=== PATIENT | female | born 1940 | race Caucasian/White ===

== ENCOUNTER 2017-12-23 08:32 | Outpatient (CLI) | payer MEDICARE, BC, SELFPAY ==
--- NOTE | 2017-12-23 06:00 | DI.RAD_ITS ---
SYMPTOM/DIAGNOSIS: CERVICAL MEDIAL BRANCH BLOCK C-ARM FLUOROSCOPY OF CERVICAL SPINE: Fluoroscopy Time: 45 Fluoroscopy was provided for guidance with cervical spine pain clinic injections. Please see procedure note for details.
[2017-12-23 08:42] VITALS: BP 119/75; PULSE 64; RESP 16; TEMP 36.2; O2SAT 100
[2017-12-23] MEDS: Omnipaque 240 MG/ML 50 ML BTL IJ (10:03)
[2017-12-23] MEDS: Bupivacaine 0.5% Pres-Free 30 ML VIAL IJ (10:04)
[2017-12-23 10:05] VITALS: BP 139/71; PULSE 68; RESP 18; O2SAT 100
--- NOTE | 2018-01-05 15:07 | PDOC.PAIN_ITS ---
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 COMMENTS: Patient has had right-sided neck pain approximately 1 year. She has tried physical therapy.which helped some. Patient was interviewed and the medical record reviewed. There were no medical , pharmacologic, radiographic or other structural contraindications to attempting fluoroscopically guided local anesthetic cervical medial branch blocks. Risks and expected side effects as well as potential benefit of the procedure were reviewed and voiced concerns addressed. The printed consent form was signed and witnessed. Standard time-out procedure was performed. Patient was placed in the { Left} lateral decubitus position on the fluoroscopy table and automated blood pressure cuff and pulse oximeter applied. The skin entry points for approaching the anatomic target points of the segmental medial branches of {Right/ C2/3,3,4,5} were identified with fluoroscopy and marked. Following thorough Chlorhexadine preparation of the skin and draping and 1% lidocaine infiltration of the skin entry points and subcutaneous tissues, a 25 gauge spinal needle was placed under fluoroscopic guidance down on to the target point for each respective segmental medial branch. Position was confirmed in A/ P and leteral views with 0.25ml of omnipaque 240 injected at each level. At each point 0.3ml 0.5% bupivicaine was injected. Vital signs were stable throughout the procedure and were as recorded in the docflowsheet by the nursing staff. Follow up plans and appointments were discussed and patient was instructed to keep careful note of how the usual pain was modified by these injections. Specifically, the patient was asked to keep a pain diary for the next 24 hours using a numeric pain scale of 0-10 and report these results at the follow-up visit. Post procedure instruction was given as documented in the nursing documentation and having met discharge criteria, and was discharged from the [facility]. Based on the medial branches blocked today, if they patient has adequate relief and we are able to proceed to radiofrequency ablation, the treatment should result in the denervation of the {right/ C2-3,3-4,4-5 FACET JOINTS}. We would expect to denervate a total of {3} facets during the radiofrequency ablation. COMMENTS: Pain went from 6/10 to 4/10. Continues quite. She will return for a second block with lidocaine. If not I would consider a Alanto-axial injection on the right side. After reviewing her CT scan it appears that she portion of her pain and mobility. CC: Ermias Sutton
== END 2017-12-23 08:52 ==
PROVIDERS: PCP Emergency Medicine; Visit Provider Anesthesiology Pain Medicine
DX: M47.812 Spondylosis without myelopathy or radiculopathy, cervical region (principal); G89.29 Other chronic pain
CPT/HCPCS: 64490; 64491; 64492; 72040; Q9967

== ENCOUNTER 2018-01-21 15:12 | Emergency (ER) | payer MEDICARE, BC, SELFPAY ==
[2018-01-21] VITALS (37 sets, daily range): BP systolic 99–159; BP diastolic 69–114; PULSE 56–80; RESP 13–28; TEMP 36.7; O2SAT 89–97
[2018-01-21 16:38] LABS: Abs Immature Grans 0.03 k/cumm (0.0-0.09); Absolute Basophil Count 0.04 k/cumm (0.0-0.2); Absolute Monocyte Count 0.53 k/cumm (0.11-0.7); Absolute Neutrophil Count 3.64 k/cumm (1.2-6.7); Basophils % 0.7; Eosinophils % 1.7; HGB 13.2 g/dL (12.0-15.5); Immature Grans % 0.5; Lymphocytes % 28.1; Mean Corpuscular Hemoglobin 30.6 pg (27.0-33.0); Mean Corpuscular Volume 92.6 fL (80-95); Mean Platelet Volume 10.3 fL (8.0-11.0); Monocytes % 8.8; Neutrophils % 60.2; Platelet Count 296 x1000/uL (130-400); RBC 4.32 m/cumm (4.00-5.20); RBC Distribution Width 14.3 % (11.7-14.6); White Blood Cell Count 6.04 k/cumm (4.4-10.8)
[2018-01-21 16:53] LABS: ALT 62 U/L (12-78); AST 50 U/L (15-37); Albumin 3.2 g/dL (3.4-5.0); Alkaline Phosphatase 358 U/L (46-116); Anion Gap 8.5 mmol/L (3-11); BUN 27 mg/dL (7-18); Bilirubin, Total 0.4 mg/dL (0.2-1.0); CO2 27.5 mmol/L (21.0-32.0); CREATININE 1.12 mg/dL (0.55-1.02); Calcium 8.8 mg/dL (8.5-10.1); Chloride 103 mmol/L (98-107); Estimated GFR 47.17 (mL/min/1.73m2); Glucose 99 mg/dL (70-100); Magnesium 2.1 mg/dL (1.8-2.4); Potassium 3.7 mmol/L (3.5-5.1); Sodium 139 mmol/L (136-145); Troponin I < 0.02 ng/mL (0.00-0.06)
[2018-01-21 17:11] LABS: D-Dimer 839 ng/mlFEU (<500)
--- NOTE | 2018-01-21 18:36 | DI.CT_ITS ---
SYMPTOMS/DIAGNOSIS: SHORTNESS OF BREATH, ? PE CHEST CT FOR PULMONARY EMBOLISM: CT angiography was performed with multi slice acquisition and multi planar and 3D reconstruction. There is no evidence of pulmonary emboli or aortic dissection. A 6 mm nodule is seen at the anterior left lower lobe. No other pulmonary nodules are seen. There is linear scarring versus atelectasis at the lung bases. There is mild pleural scarring and mild interstitial thickening. There is no evidence of adenopathy, infiltrate or effusion. There is a mild T9 compression fracture of the superior endplate. This was not seen on the previous chest x-ray from 2010. There is calcification posterior to the T0 and T11 vertebral bodies, which appears unchanged, consistent with ligamentous calcifications. The visualized portions of the upper abdomen are unremarkable. IMPRESSION: No evidence of pulmonary emboli or other acute abnormality. There is a mild T9 compression fracture, which appears old. Follow up of the left lower lobe nodule is recommended according to Fleishner Society guidelines.
[2018-01-21] MEDS: Omnipaque 350 MG/ML 100 ML BTL IJ (18:43)
--- NOTE | 2018-01-21 18:55 | DI.VRAD_ITS ---
EXAM: CT Angiography Chest With Intravenous Contrast CLINICAL HISTORY: 77 years old, female; Signs and symptoms; Shortness of breath; Patient HX: A/fib TECHNIQUE: Axial computed tomographic angiography images of the chest with intravenous contrast using pulmonary embolism protocol. MIP reconstructed images were created and reviewed. Coronal and sagittal reformatted images were created and reviewed. COMPARISON: No relevant prior studies available. FINDINGS: No evidence of PE. Mild diffuse interstitial lung scarring. No significant focal consolidation. Suggestion of a 6 mm nodule in the lingula. Please see the final report for details as to the local protocol for followup. The Fleischner criteria are included below. No pleural effusion. No pneumothorax. No significant adenopathy. Unremarkable upper abdomen. No acute mediastinal or aortic abnormality. Minimal old appearing compression of the T9 vertebral body. Prominent posterior calcification or ossification at the T10-11 level resulting in mild narrowing of the central canal. Significance of this is uncertain. IMPRESSION: No specific etiology identified for the patient's symptoms. Suggestion of a 6 mm nodule in the lingula as outlined above. As per Fleischner Society guidelines for follow-up and management of pulmonary nodules: For patients at low risk (minimal or absent history of smoking and of other known risk factors), recommend initial follow-up chest CT at 6-12 months then at 18-24 months if no change. For patient at high risk (history of smoking or of other known risk factors), recommend initial follow-up chest CT at 3-6 months, then at 9-12 and 24 months if no change. Dictated and Authenticated by: Josep Epstein MD. Ordering:LIV SORENSEN MD
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
[2018-01-21] MEDS: Apixaban 5 MG TAB PO (20:48)
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
== END 2018-01-21 20:49 | disposition home or self-care (01) ==
PROVIDERS: Emergency Provider Student in an Organized Health Care Education/Training Program; PCP Emergency Medicine
DX: R06.02 Shortness of breath (principal); I48.91 Unspecified atrial fibrillation; R91.1 Solitary pulmonary nodule; Z79.01 Long term (current) use of anticoagulants
CPT/HCPCS: 36415; 71275; 80053; 93005; 99285; 83735; 84484; 85025; 85379; 93010; J3490

== ENCOUNTER 2018-01-26 01:58 | Outpatient (CLI) | payer MEDICARE, BC, SELFPAY ==
--- NOTE | 2018-02-11 10:09 | ZIOP_ITS ---
ZIO Patch Report DATE OF DICTATION February 11, 2018 STUDY INDICATION Atrial fibrillation. REQUESTING PROVIDER Ermias Sutton D.O. FINDINGS The patient was monitored for 11 days and 1 hour. COMMENTS The predominant underlying rhythm was sinus rhythm. Average heart rate in sinus rhythm 69 beats per minute, range 50 to 125 beats per minute. There was rare ectopy. The patient was in atrial fibrillation 3% of the time. Average heart rate in atrial fibrillation 76 beats per minute, range 53 to 147 beats per minute. The longest episode lasted 7 hours and 15 minutes. There were 11 atrial runs most likely resembling atrial fibrillation, average heart rate 113 beats per minute, range 85 to 144 beats per minute. The longest episode lasted 8 beats. There were no pauses greater than 3 seconds. There was no higher degree heart block. There were no patient events. FINAL INTERPRETATION Paroxysmal atrial fibrillation with controlled ventricular response. Freddy Gordon M.D. CHELA/elizabet T - 02/11/2018
--- NOTE | 2018-02-16 11:44 | ZIOP_ITS ---
ZIO PATCH REPORT DATE OF DICTATION February 16, [address] 11 days 1 hour, January 26 - 2017 INTERPRETATION Baseline rhythm sinus. Rare single PAC. 11 bursts of SVT, longest 8 beat duration, fastest 144 beats per minute. Atrial fibrillation noted on 3% of this monitor, longest episode 7 hours 15 minutes. Average heart ra te in atrial fibrillation 76 beats per minute, range 53-147 beats per minute. Rare single PVC. Rare couplet. Rare triplet. No VT. No bradycardia/block. SYMPTOMS No symptoms. No triggered events. Average heart rate sinus 69 beats per minute, range 50-125 beats per minute. Mike Lewis M.D. MYCHAL/elizabet T - 02/16/2018
== END 2018-01-26 02:18 ==
PROVIDERS: PCP Emergency Medicine; Visit Provider Emergency Medicine
DX: I48.0 Paroxysmal atrial fibrillation (principal)
CPT/HCPCS: 93225

== ENCOUNTER 2018-01-28 00:09 | Outpatient (CLI) | payer MEDICARE, BC, SELFPAY | END 2018-01-28 00:29 | PROVIDERS: PCP Emergency Medicine; Visit Provider Emergency Medicine | DX: I48.0 Paroxysmal atrial fibrillation (principal) ==

== ENCOUNTER 2018-02-06 00:30 | Outpatient (CLI) | payer MEDICARE, BC, SELFPAY ==
--- NOTE | 2018-02-06 14:00 | MERGE_ITS ---
*[facility]* *[facility]* [address] [place] [address] Date of study: 02/06/2018 Transthoracic Echocardiography M-mode, complete 2D, complete spectral Doppler, and color Doppler *STUDY CONCLUSIONS* Summary: 1. Left ventricle: The cavity size was normal. Wall thickness was normal. Systolic function was normal. The estimated ejection fraction was 55-60%. Wall motion was normal; there were no regional wall motion abnormalities. 2. Right ventricle: The cavity size was normal. Systolic function was normal. 3. Mitral valve: There was mild regurgitation. 4. Tricuspid valve: There was moderate-severe regurgitation. 5. Inferior vena cava: The vessel was normal in size. The respirophasic diameter changes were in the normal range (greater than or equal to 50%), consistent with normal central venous pressure. *PATIENT PRESENTATION* Height: 170.2cm ((67in) ) S/D Pressure: 131 / 82 Weight: 62.6kg ((137.7lb) ) BSA: 1.72m^2 Test start time: 02:00 PM. Test stop time: 03:00 PM. ORDERING Ermias Sutton REFERRING Ermias Sutton PERFORMING Unknown PERFORMING [facility] MEDICAL UNIT SECRETARY Phoebe Olivas *PROCEDURE DATA* Procedure information: This study was interpreted by [facility]. Pertinent images and digital data are archived for permanent storage and are available for subsequent review. No prior study was available for comparison. Study status: Routine. Transthoracic echocardiography. M-mode, complete 2D, complete spectral Doppler, and color Doppler. A Transthoracic Echocardiogram was performed. Scanning was performed from the parasternal, apical, subcostal, and suprasternal notch acoustic windows. Images were obtained using an [employer] 2000 cardiac ultrasound machine. Image quality was adequate. Study completion: The patient tolerated the procedure well. There were no complications. History: PMH: Atrial fibrillation *CARDIAC ANATOMY* Left ventricle: The cavity size was normal. Wall thickness was normal. Systolic function was normal. The estimated ejection fraction was 55-60%. Wall motion was normal; there were no regional wall motion abnormalities. Findings consistent with diastolic dysfunction. There was no evidence of elevated ventricular filling pressure by Doppler parameters. Aortic valve: Trileaflet; normal thickness leaflets. Mobility was not restricted. Doppler: Transvalvular velocity was within the normal range. There was no stenosis. There was no significant regurgitation. VTI ratio of LVOT to aortic valve: 0.85. Valve area (VTI): 2.5cm^2. Indexed valve area (VTI): 1.4cm^2/m^2. Peak velocity ratio of LVOT to aortic valve: 0.79. Valve area (Vmax): 2.3cm^2. Indexed valve area (Vmax): 1.3cm^2/m^2. Mean velocity ratio of LVOT to aortic valve: 0.78. Valve area (Vmean): 2.3cm^2. Indexed valve area (Vmean): 1.3cm^2/m^2. Mean gradient (S): 3.2mm Hg. Peak gradient (S): 6.3mm Hg. Aorta: Aortic root: The aortic root was normal in size. Ascending aorta: The ascending aorta was normal in size. Mitral valve: Structurally normal valve. Mobility was not restricted. Doppler: Transvalvular velocity was within the normal range. There was no evidence for stenosis. There was mild regurgitation. Valve area by pressure half-time: 2.8cm^2. Indexed valve area by pressure half-time: 1.6cm^2/m^2. Left atrium: The atrium was normal in size. Right ventricle: The cavity size was normal. Systolic function was normal. Pulmonic valve: Poorly visualized. Doppler: Transvalvular velocity was within the normal range. There was no evidence for stenosis. There was no significant regurgitation. Tricuspid valve: Structurally normal valve. Doppler: Transvalvular velocity was within the normal range. There was no evidence for stenosis. There was moderate-severe regurgitation. Pulmonary artery: Poorly visualized. Pulmonary systolic pressure was within the normal range, in the range of 20mm Hg to 25mm Hg. Right atrium: The atrium was dilated. Pericardium: There was no pericardial effusion. Systemic veins: Inferior vena cava: The vessel was normal in size. The respirophasic diameter changes were in the normal range (greater than or equal to 50%), consistent with normal central venous pressure. Measurements Left ventricle Value Reference LV ID, ED, PLAX 4.3 cm 3.5 - 6.0 LV ID, ES, PLAX 2.6 cm 2.1 - 4.0 LV PW thickness, ED, PLAX 0.9 cm LV end-diastolic volume, 1-p A2C 68 ml LV ejection fraction, 1-p A2C 73 % LV end-diastolic volume, 1-p A4C 56 ml LV ejection fraction, 1-p A4C 58 % LV e', lateral 0.084 m/sec LV E/e', lateral 5 Ventricular septum Value Reference IVS thickness, ED, PLAX 0.9 cm LVOT Value Reference LVOT ID, A-P 1.9 cm LVOT area 2.9 cm^2 LVOT peak velocity, S 1 m/sec LVOT mean velocity, S 0.65 m/sec LVOT VTI, S 21.2 cm LVOT peak gradient, S 4 mm Hg LVOT mean gradient, S 2 mm Hg Stroke volume (SV), LVOT DP 62 ml Stroke index (SV/bsa), LVOT DP 36 ml/m^2 Aortic valve Value Reference Aortic valve peak velocity, S 1.3 m/sec Aortic valve mean velocity, S 0.83 m/sec Aortic valve VTI, S 25.0 cm Aortic mean gradient, S 3.2 mm Hg Aortic peak gradient, S 6.3 mm Hg VTI ratio, LVOT/AV 0.85 Aortic valve area, VTI 2.5 cm^2 Velocity ratio, peak, LVOT/AV 0.79 Aortic valve area, peak velocity 2.3 cm^2 Velocity ratio, mean, LVOT/AV 0.78 Aortic valve area, mean velocity 2.3 cm^2 Aortic valve area/bsa, mean velocity 1.3 cm^2/m^2 Aorta Value Reference Aortic root ID, ED 2.8 cm Ascending aorta ID, A-P, S 3.1 cm Left atrium Value Reference LA ID, A-P, ES 3.4 cm LA ID/bsa, A-P 2.0 cm/m^2 <=2.2 LA area, ES, A4C 19 cm^2 8.8 - 23.4 LA area, ES, A2C 15 cm^2 LA volume/bsa, S 29 ml/m^2 LA volume, ES, 2-p 46 ml LA volume/bsa, ES, 2-p 27 ml/m^2 LA/aortic root ratio 1.2 Mitral valve Value Reference Mitral E-wave peak velocity 0.42 m/sec Mitral A-wave peak velocity 0.68 m/sec Mitral deceleration time (H) 269 ms 150 - 230 Mitral pressure half-time 78 ms Mitral E/A ratio, peak 0.61 Mitral valve area, PHT, DP 2.8 cm^2 Tricuspid valve Value Reference Tricuspid regurg peak velocity 2.3 m/sec Tricuspid peak RV-RA gradient 20.9 mm Hg Right atrium Value Reference RA area, ES, A4C (H) 21.7 cm^2 8.3 - 19.5 Legend: (L) and (H) belgica values outside specified reference range. I have personally reviewed the images and have reviewed and edited the reported findings. Electronically signed by Aoms Rosa 02/07/2018 09:56
== END 2018-02-06 00:50 ==
PROVIDERS: PCP Emergency Medicine; Visit Provider Emergency Medicine
DX: I48.91 Unspecified atrial fibrillation (principal); R06.09 Other forms of dyspnea; I34.0 Nonrheumatic mitral (valve) insufficiency
CPT/HCPCS: 93306

== ENCOUNTER 2018-02-11 | Outpatient (CLI) | payer MEDICARE, BC, SELFPAY ==
--- NOTE | 2018-02-11 08:15 | MERGEMPI_ITS ---
*[facility]* *[facility]* [address] [place] [address] Myocardial Perfusion Imaging - SPECT Mg protocol Date of study: 02/11/2018 *PATIENT PRESENTATION* Height: 172.7cm (68in) Blood Pressure: Weight: 62.3kg (137lb) BSA: 1.73m^2 Referring physician: Freddy Gordon Ordering physician: Ermias Sutton Impressions: Normal study after maximal exercise. Summary: 1. Myocardial perfusion imaging: No myocardial perfusion defects noted. 2. The calculated left ventricular ejection fraction after stress: 67%. LV global systolic function is normal. 3. Stress ECG conclusions: The stress ECG is negative. 4. Stress: The target heart rate was achieved. The heart rate response to stress is normal. There is a normal resting blood pressure with an appropriate response to stress. The patient experienced no chest pain during stress. Exercise capacity is good (10 METS). Indication: I48.91. History: Patient's presenting symptoms: asymptomatic. REASON FOR VISIT: PATIENT PRESENTED TO THE EMERGENCY ROOM ON 01/21/18, AFTER BEING SEEN BY PCP, FOR COMPLAINTS OF MILD DYSPNEA ON EXERTION AND FATIGUE OCCURING OVER THE PAST MONTH. PATIENT DENIES SHORTNESS OF BREATH AT REST. EKG REVEALED NEW ONSET ATRIAL FIBRILLATION, RATE 69 BPM, ANTERIOR SEPTAL Q WAVES, AND NO ACUTE ISCHEMIC CHANGES. PLAN TO FURTHER EVALUATE WITH HOLTER MONITOR AND MPI STRESS TEST. 02/06/18 ECHOCARDIOGRAM: ESTIMATED EJECTION FRACTION WAS 55-60%. MILD REGURGITATION OF MITRAL VALVE. MODERATE-SEVERE REGURGITATION OF TRICUSPID VALVE. PAST MEDICAL HISTORY: HYPERTENSION, HYPERLIPIDEMIA, OSTEOPOROSIS, ARTHRITIS,RECURRENT BASAL CELL CARCINOMA. FAMILY HISTORY: NONE. SMOKING STATUS: NEVER SMOKER. EXERCISE ROUTINE: PT WITH AALIYAH SWAN 2X/WEEK. HAD PREVIOUSLY BEEN EXERCISING ON TREADMILL OR STATIONARY BIKE EVERY DAY, HAS NOT BEEN ABLE TO THIS PAST MONTH DUE TO FATIGUE. Risk factors: Hypertension. Dyslipidemia. Cholesterol: 230mg/dl. HDL: 67mg/dl. LDL: 127mg/dl. Triglycerides: 116mg/dl. ALLERGIES: LISINOPRIL, HYDROCHLOROTHIAZIDE. MEDICATIONS: MULTIVITAMIN, DAILY. VITAMIN B12 - FOLIC ACID, DAILY. CALCIUM CARBONATE 600MG, DAILY. VITAMIN D3 1,000 UNITS, DAILY. APIXABAN 5MG, BID. AMLODIPINE 50MG, DAILY. Imaging Technique: Protocol: Mg protocol. Acquisition: Gated SPECT; 1 day - rest/stress. The patient was imaged in the supine position. Attenuation correction used. Isotope administration: - Rest. Tc[99m]-sestamibi. Dose: 10.1mCi. Injection time: 08:30 AM. Injection to stress time: 00:45. - Stress. Tc[99m]-sestamibi. Dose: 30mCi. Injection time: 10:20 AM. 1-2 min before end of exercise Baseline ECG: SINUS BRADYCARDIA, HEART RATE 53 BPM. Q WAVES PRESENT IN LEADS V1 AND V2. Sinus bradycardia. Stress protocol: + +---+ +---+ !Stage !HR !BP (mmHg) !Sat! + +---+ +---+ !Baseline supine !53 !128/62 (84) !99%! + +---+ +---+ !Baseline standing !70 !142/82 (102) !---! + +---+ +---+ !Stage I; 1.7mph, 10degrees; 3 min !102!152/94 (113) !---! + +---+ +---+ !Stage II; 2.5mph, 12degrees; 3 min !117!162/94 (117) !---! + +---+ +---+ !Stage III; 3.4mph, 14degrees; 3 min!133!178/102 (127)!---! + +---+ +---+ !Peak stress !135! !---! + +---+ +---+ !Recovery; 1 min !113!178/86 (117) !---! + +---+ +---+ !Recovery; 3 min !79 !154/80 (105) !---! + +---+ +---+ !Recovery; 6 min !72 !142/70 (94) !---! + +---+ +---+ * Stress results: Maximal heart rate during stress was 135bpm (94% of maximal predicted heart rate). The maximal predicted heart rate was 143bpm. The target heart rate was achieved. The heart rate response to stress is normal. There is a normal resting blood pressure with an appropriate response to stress. The rate-pressure product for the peak heart rate and blood pressure was 72373hw Hg/min. The patient experienced no chest pain during stress. Exercise capacity is good (10 METS). Stress ECG: TREADMILL PORTION OF MPI STRESS TEST ENDED IN 8MIN 59SEC DUE TO PATIENT FATIGUE. APPROPRIATE HEART RATE AND BLOOD PRESSURE RESPONSE TO EXERCISE. MAX HEART RATE 135BPM, 94% OF TARGET. APPROXIMATE METS ACHIEVED 10.16. NO ANGINA REPORTED. OCCASIONAL PVC NOTED IN STAGE 2 AND 3 OF MG PROTOCOL. FREQUENT PAC'S NOTED IN STAGE 2 OF MG PROTOCOL AND CONTINUING UNTIL 4MIN RECOVERY. NO SIGINIFICANT ST SEGMENT CHANGES NOTED. ABOVE AVERAGE FUNCTIONAL CAPACITY. The stress ECG is negative. Sargent treadmill score: 9. This score predicts a low risk of cardiac events. Myocardial perfusion: Imaging information: gated. The image quality was excellent. Left ventricular size is normal. No myocardial perfusion defects noted. Ventricular Function (Wall Motion): The calculated left ventricular ejection fraction after stress: 67%. LV global systolic function is normal. Study data: Freddy Gordon MD supervised and was readily available during the procedure. This study was interpreted by [facility]. Study status: Routine. Consent: The risks, benefits, and alternatives to the procedure were explained to the patient and informed consent was obtained. Procedure: Initial setup. A baseline ECG was recorded. Surface ECG leads and manual cuff blood pressure measurements were monitored. Heart sounds: Normal. Lung sounds: Normal. Treadmill exercise testing was performed using the Mg protocol. Study completion: All catheters inserted during the procedure were removed. The patient tolerated the procedure well and was discharged from the lab. Discharge: The patient left the laboratory in stable condition. Birthdate: Patient birthdate: 1940. Sex: Gender: female. Study date: Study date: 02/11/2018. Study time: 08:15 AM. Signature Documentation: - The imaging portion of this study was interpreted by Nuclear Cleaning Attendant Freddy Gordon MD. - The imaging portion of this study was interpreted by Nuclear Radiologist Bowen Pugh MD. - The Stress ECG portion of this study was interpreted by Freddy Gordon MD. Electronically signed by Freddy Gordon 02/11/2018 15:33
== END 2018-02-11 00:20 ==
PROVIDERS: PCP Emergency Medicine; Visit Provider Emergency Medicine
DX: I48.91 Unspecified atrial fibrillation (principal); I10 Essential (primary) hypertension; E78.5 Hyperlipidemia, unspecified
CPT/HCPCS: 78452; 93016; 93018; 93017

== ENCOUNTER 2018-02-11 08:11 | Outpatient (CLI) | payer MEDICARE, BC, SELFPAY | END 2018-02-11 08:31 | PROVIDERS: PCP Emergency Medicine; Visit Provider Student in an Organized Health Care Education/Training Program | DX: I48.91 Unspecified atrial fibrillation (principal) | CPT/HCPCS: 0298T ==

== ENCOUNTER 2018-02-12 11:06 | Outpatient (CLI) | payer MEDICARE, BC, SELFPAY ==
[2018-02-12 12:47] LABS: Abs Immature Grans 0.01 k/cumm (0.0-0.09); Absolute Basophil Count 0.03 k/cumm (0.0-0.2); Absolute Eosinophil Count 0.06 k/cumm (0.0-0.7); Absolute Lymphocyte Count 1.41 k/cumm (1.2-3.4); Absolute Monocyte Count 0.59 k/cumm (0.11-0.7); Absolute Neutrophil Count 3.27 k/cumm (1.2-6.7); Basophils % 0.6; Eosinophils % 1.1; HCT 41.9 % (36.0-46.0); HGB 13.6 g/dL (12.0-15.5); Immature Grans % 0.2; Lymphocytes % 26.3; Mean Corp. HGB Concentration 32.5 g/dL (32.0-36.0); Mean Corpuscular Hemoglobin 29.6 pg (27.0-33.0); Mean Corpuscular Volume 91.1 fL (80-95); Mean Platelet Volume 10.6 fL (8.0-11.0); Neutrophils % 60.8; Platelet Count 295 x1000/uL (130-400); RBC Distribution Width 14.4 % (11.7-14.6); White Blood Cell Count 5.37 k/cumm (4.4-10.8)
[2018-02-12 13:06] LABS: ALT 43 U/L (12-78); AST 35 U/L (15-37); Albumin 3.5 g/dL (3.4-5.0); Alkaline Phosphatase 172 U/L (46-116); Anion Gap 7.4 mmol/L (3-11); BUN 22 mg/dL (7-18); Bilirubin, Direct 0.13 mg/dL (0.00-0.20); Bilirubin, Total 0.5 mg/dL (0.2-1.0); C-Reactive Protein 0.23 mg/dL (0.0-0.3); CO2 29.6 mmol/L (21.0-32.0); CREATININE 0.83 mg/dL (0.55-1.02); Calcium 9.6 mg/dL (8.5-10.1); Chloride 102 mmol/L (98-107); Glucose 87 mg/dL (70-100); NT-proBNP 253 pg/mL; Potassium 4.2 mmol/L (3.5-5.1); Sodium 139 mmol/L (136-145); TSH 4.63 uIU/mL (0.358-3.74); Total Protein 7.9 g/dL (6.4-8.2)
[2018-02-12 13:17] LABS: D-Dimer 383 ng/mlFEU (<500)
[2018-02-12 13:32] LABS: GGT 118 U/L (5-55)
== END 2018-02-12 11:26 ==
PROVIDERS: PCP Emergency Medicine; Visit Provider Emergency Medicine
DX: I48.0 Paroxysmal atrial fibrillation (principal); I10 Essential (primary) hypertension; R74.8 Abnormal levels of other serum enzymes; R06.09 Other forms of dyspnea
CPT/HCPCS: 36415; 80053; 80076; 82977; 83880; 84443; 85025; 85379; 86140

== ENCOUNTER 2018-04-24 09:14 | Outpatient (CLI) | payer MEDICARE, BC, SELFPAY ==
[2018-04-24 12:03] LABS: ALT 29 U/L (12-78); AST 27 U/L (15-37); Albumin 3.5 g/dL (3.4-5.0); Alkaline Phosphatase 121 U/L (46-116); Bilirubin, Total 0.5 mg/dL (0.2-1.0); GGT 45 U/L (5-55); TSH 5.08 uIU/mL (0.358-3.74); Total Protein 7.9 g/dL (6.4-8.2)
[2018-04-24 12:35] LABS: Bilirubin, Direct 0.13 mg/dL (0.00-0.20); FREE T4 0.92 ng/dL (0.76-1.46)
== END 2018-04-24 09:34 ==
PROVIDERS: PCP Emergency Medicine; Visit Provider Emergency Medicine
DX: I10 Essential (primary) hypertension (principal); E78.5 Hyperlipidemia, unspecified; R74.8 Abnormal levels of other serum enzymes; I48.91 Unspecified atrial fibrillation; R79.89 Other specified abnormal findings of blood chemistry; E03.9 Hypothyroidism, unspecified
CPT/HCPCS: 80076; 82977; 84439; 84443

== ENCOUNTER 2018-11-20 06:36 | Outpatient (CLI) | payer MEDICARE, BC, SELFPAY ==
--- NOTE | 2018-11-20 09:30 | DI.MAMMO_ITS ---
SYMPTOM/DIAGNOSIS: SCREENING, Z12.31 MAMMOGRAMS: Mammograms were interpreted according to the usual protocol including computer analysis with CAD system, tomosynthesis and C view imaging. The breasts are moderate density with fairly symmetrical distribution of fibroglandular tissue. No dominant mass identified in either breast. There is a group of faintly seen microcalcifications in the upper outer quadrant of the left breast which do not appear to have been present on previous examinations including 08/2017. These may number up to 6 and are not ideally visualized. Additional evaluation with magnification spot compression views of this area suggested. No other significant change in appearance in comparison with previous studies. CONCLUSION: Question new group of microcalcifications of the left breast, not ideally visualized. Magnification spot compression views and breast ultrasound requested for further evaluation. Category 0. Breast density, category B. [facility] ASSESSMENT OF FINDINGS: Incomplete: Needs additional imaging evaluation. Category 0. Patient will receive a letter notifying them of these results. BI-RADS category B. There are scattered areas of fibroglandular density.
== END 2018-11-20 06:56 ==
PROVIDERS: PCP Emergency Medicine; Visit Provider Emergency Medicine
DX: Z12.31 Encounter for screening mammogram for malignant neoplasm of breast (principal); R92.8 Other abnormal and inconclusive findings on diagnostic imaging of breast
CPT/HCPCS: 77063; 77067

== ENCOUNTER 2018-11-25 03:47 | Outpatient (CLI) | payer MEDICARE, BC, SELFPAY ==
--- NOTE | 2018-11-25 14:44 | DI.MAMMO_ITS ---
SYMPTOM/DIAGNOSIS: MICROCALCIFICATIONS UPPER ;OUTER LEFT BREAST R92.8 MAGNIFICATION VIEWS LEFT BREAST Magnification views were interpreted using 2D imaging. Magnification views were performed for new cluster of microcalcifications in the upper outer quadrant central breast tissue. The calcifications are clustered over approximately 5 mm and vary in size. The findings are indeterminate for malignancy. Biopsy is recommended for further evaluation. There is no visible associated mass. IMPRESSION: Category 4, biopsy of a new cluster of microcalcifications in the upper outer quadrant is recommended. Breast density category B. The findings were discussed with the patient and called to Dr. Sutton's office. [facility] ASSESSMENT OF FINDINGS: Suspicious. Biopsy should be considered. Category 4. Patient will receive a letter notifying them of these results. BI-RADS category B. There are scattered areas of fibroglandular density.
== END 2018-11-25 04:07 ==
PROVIDERS: PCP Emergency Medicine; Visit Provider Emergency Medicine
DX: Z12.31 Encounter for screening mammogram for malignant neoplasm of breast (principal); R92.8 Other abnormal and inconclusive findings on diagnostic imaging of breast
CPT/HCPCS: 77063; 77067

== ENCOUNTER 2018-12-31 01:00 | Outpatient (CLI) | payer MEDICARE, BC, SELFPAY ==
--- NOTE | 2018-12-31 07:34 | DI.RAD_ITS ---
EXAM: XR KNEE LT 3V AP,LAT,EUGENIE INDICATION: left knee pain,M25.562 COMPARISON: LEFT KNEE 3 VIEW COMPLETE from 11/04/2013 TECHNIQUE: 2D digital imaging was performed. FINDINGS: There is some narrowing of the medial tibiofemoral joint. Minimal periarticular spurring is demonstr ated. There is no evidence of a joint effusion. IMPRESSION: Degenerative changes are demonstrated.
== END 2018-12-31 01:20 ==
PROVIDERS: PCP Emergency Medicine; Visit Provider Emergency Medicine
DX: M25.562 Pain in left knee (principal); M17.12 Unilateral primary osteoarthritis, left knee
CPT/HCPCS: 73562

== ENCOUNTER 2019-10-20 09:21 | Outpatient (REF) | payer MEDICARE, BC, SELFPAY ==
[2019-10-20 13:39] LABS: Calculated LDL 153 mg/dL (<100); Cholesterol 258 mg/dL (<200); HDL Cholesterol 75 mg/dL (40-60); Triglyceride 151 mg/dL (<150)
== END 2019-10-20 09:41 ==
LOC: LBN 09:21
PROVIDERS: PCP Emergency Medicine; Visit Provider Emergency Medicine
DX: I10 Essential (primary) hypertension (principal)
CPT/HCPCS: 80061

== ENCOUNTER 2020-08-15 21:16 | Outpatient (REF) | payer MEDICARE, BC, SELFPAY ==
[2020-08-15 21:25] LABS: TSH 2.44 uIU/mL (0.36-3.74)
== END 2020-08-15 21:17 | disposition home or self-care (01) ==
LOC: LBN 21:16
PROVIDERS: PCP Emergency Medicine; Visit Provider Emergency Medicine
DX: E03.9 Hypothyroidism, unspecified (principal)
CPT/HCPCS: 84443

== ENCOUNTER 2021-01-29 10:25 | Outpatient (CLI) | payer MEDICARE, BC, SELFPAY ==
--- NOTE | 2021-01-29 | DI.RAD_ITS ---
Exam(s) XR FOOT RT COMPLETE EXAM: XR FOOT RT COMPLETE CLINICAL HISTORY: FOOT JT PAIN RT. TECHNIQUE: 2D digital imaging was performed. COMPARISON: No exams were available for comparison FINDINGS: There is soft tissue swelling over the dorsal aspect of the foot concentrated over the midfoot area. No soft tissue calcification is seen at this level. There are no fractures nor diastasis of the Lis franc joint. Bone density is age-appropriate. No osseous lesions. No erosions. No radiopaque fore ign body evident. Small inferior calcaneal spur is noted. No pes planus. IMPRESSION: DATA REPOSITORY: RADIATION DOSE DELIVERED:
== END 2021-01-29 10:45 ==
PROVIDERS: PCP Emergency Medicine; Visit Provider Physician Assistant Medical
DX: M25.571 Pain in right ankle and joints of right foot (principal); M79.89 Other specified soft tissue disorders; M77.31 Calcaneal spur, right foot
CPT/HCPCS: 73630

== ENCOUNTER → 2021-03-30 08:55 | Outpatient (BNVA) | payer MEDICARE, BC, SELFPAY | PROVIDERS: PCP Emergency Medicine; Referring Provider Emergency Medicine; Visit Provider Student in an Organized Health Care Education/Training Program | DX: M65.861 Other synovitis and tenosynovitis, right lower leg (principal) | CPT/HCPCS: 99203 ==

== ENCOUNTER 2021-07-11 18:10 | Outpatient (REF) | payer MEDICARE, BC, SELFPAY ==
--- NOTE | 2021-07-11 15:00 | TONG_PTH ---
PATIENT: Aixa Owen LOC: [facility] U#:[id number] AGE/SX: 81/F ROOM: RE07/11/[address]: Yanick Harry MD : [id number] BED: DIS: 07/11/2021 SPEC #: [id number] RECD: 07/11/21 18:25 STATUS: PADMA REQ #: [id number] JORGE LUIS: 07/11/21 15:[address]: Yanick Harry DEPT: Surgical Specimen RECD BY: Criselda Diego ENTERED: 07/11/21 18:26 SP TYPE: CORNELIUS MAR DR: Piper Malone Tissues: 1 - TONSIL BIOPSY Procedures: GROSS AND MICRO LEVEL 4 Comments: [id number]
== END 2021-07-11 18:11 | disposition home or self-care (01) ==
LOC: LBN 18:10
PROVIDERS: PCP Family Medicine; Visit Provider Otolaryngology
DX: K14.8 Other diseases of tongue (principal); K13.21 Leukoplakia of oral mucosa, including tongue
CPT/HCPCS: 88305

== ENCOUNTER 2022-04-22 13:30 | Outpatient (CLI) | payer MEDICARE, BC, SELFPAY ==
--- NOTE | 2022-04-22 14:45 | DI.RAD_ITS ---
Exam(s) XR HIP RT COMPLETE AP PELVIS EXAM: XR HIP RT COMPLETE AP PELVIS INDICATION: f/u R hip pain. COMPARISON: CR RIGHT HIP COMPLETE from 12/22/2012 MR MRI R LOWER JOINT WO CONT from 02/12/2013 TECHNIQUE: 2D digital imaging was performed. Three views. FINDINGS: There is moderate narrowing of the right hip joint space bev progression when compared the previous exam. There is increased periarticular spurring as well as increased sclerosis. The left hip joint is maintained, similar to prior exam. IMPRESSION: Moderate to severe degenerative changes of right hip. DATA REPOSITORY: RADIATION DOSE DELIVERED:
--- NOTE | 2022-04-22 14:45 | DI.RAD_ITS ---
Exam(s) XR KNEE RT 3V AP,LAT,EUGENIE EXAM: XR KNEE RT 3V AP,LAT,EUGENIE CLINICAL HISTORY: eval R knee pain. TECHNIQUE: 2D digital imaging was performed. Three views. COMPARISON: CR XR KNEE LT 3V AP,LAT,EUGENIE from 12/31/2018 FINDINGS: BONES: No acute fracture is present. No bony destructive lesion is seen. Bones appear mildly osteopen ic. JOINTS: The knee is normally aligned. No joint effusion is seen. Joint spaces are maintained. No sig nificant periarticular spurring. SOFT TISSUE: Normal. IMPRESSION: Unremarkable radiographs of the right knee. DATA REPOSITORY: RADIATION DOSE DELIVERED:
== END 2022-04-22 13:31 | disposition home or self-care (01) ==
LOC: DIORS 04-23 08:52
PROVIDERS: PCP Family Medicine; Visit Provider Student in an Organized Health Care Education/Training Program
DX: M23.91 Unspecified internal derangement of right knee (principal); M16.11 Unilateral primary osteoarthritis, right hip
CPT/HCPCS: 73562; 99213; 73502

== ENCOUNTER 2022-04-24 10:20 | Outpatient (CLI) | payer MEDICARE, BC, SELFPAY ==
[2022-04-24 12:30] LABS: Abs Immature Grans 0.01 10^3/uL (0.0-0.06); Absolute Basophil Count 0.03 10^3/uL (0.0-0.2); Absolute Eosinophil Count 0.09 10^3/uL (0.0-0.7); Absolute Lymphocyte Count 1.34 10^3/uL (1.2-3.4); Absolute Monocyte Count 0.52 10^3/uL (0.1-0.8); Absolute Neutrophil Count 2.97 10^3/uL (1.2-6.7); Basophils % 0.6; Eosinophils % 1.8; HCT 43.8 % (36.0-46.0); HGB 14.6 g/dL (11.2-15.7); Immature Grans % 0.2; MCH 31.2 pg (27.0-33.0); MCHC 33.3 % (32.0-36.0); MCV 94 fL (80-95); MPV 10.3 fL (8.0-11.0); Monocytes % 10.5; Neutrophils % 59.9; Platelet Count 276 10^3/uL (130-400); RBC 4.68 10^6/uL (3.93-5.22); RDW 13.5 % (11.7-14.6); RDW-SD 46.5 fL; WBC 4.96 10^3/uL (4.4-10.8)
[2022-04-24 13:34] LABS: Vitamin D 25 Total 39.7 ng/mL (30-100)
[2022-04-24 13:41] LABS: TSH (W/Ref FT4) 3.91 uIU/mL (0.36-3.74); Vitamin B12 1742 pg/mL (193-986)
[2022-04-24 13:58] LABS: FREE T4 0.87 ng/dL (0.76-1.46)
== END 2022-04-24 10:21 | disposition home or self-care (01) ==
LOC: LOS 10:21
PROVIDERS: PCP Family Medicine; Visit Provider Family Medicine
DX: M81.0 Age-related osteoporosis without current pathological fracture (principal); R53.83 Other fatigue
CPT/HCPCS: 36415; 82306; 82607; 84439; 84443; 85025

== ENCOUNTER 2022-05-02 03:16 | Outpatient (CLI) | payer MEDICARE, BC, SELFPAY ==
--- NOTE | 2022-05-02 07:45 | DI.RAD_ITS ---
Exam(s) RF JOINT INJECTION FLUORO GUID EXAM: RF JOINT INJECTION FLUORO GUID CLINICAL HISTORY: R HIP INJ UNDER FLUORO,RT HIP PAIN, M25.551 TECHNIQUE: Fluoroscopy provided. Radiologist not present. CONTRAST MATERIAL: None COMPARISON: No exams were available for comparison FINDINGS: Fluoroscopy was provided for Dr. Thomas during right hip injection. Please refer to the procedure report for complete details. Cumulative Dose: Ka,r=6.8 mGy IMPRESSION: RADIATION DOSE DELIVERED:
[2022-05-02] MEDS: Bupivacaine 0.5% Pres-Free 10 ML VIAL 5 ML IJ (13:57)
[2022-05-02] MEDS: Omnipaque 300 MG/ML 10 ML BTL IJ (13:57)
[2022-05-02] MEDS: methylPREDNISolone ACETATE 80 MG/ML VIAL IM (13:58)
--- NOTE | 2022-05-02 18:35 | W.PROCNOTE ---
Date of service: 05/02/22 Time of Service: 14:00 Procedure Note Date of procedure: 05/02/22 Procedure: Right Hip Injection with Fluoroscopic Guidance Surgeon/Proceduralist/Physician: Yonatan Thomas Procedure Diagnosis: Right Hip Osteoarthritis Procedure Indications: Aixa has had persistent pain of the RIGHT hip and groin. Noninvasive measures have been tried. To serve as both diagnostic and therapeutic, an injection under fluoroscopy was recommended. I had discussed the risks of the procedure and the patient elected to proceed. Procedure Description: Aixa was greeted in the flouroscopy room. The correct side was identified and the consent was reviewed with the patient and signed. The patient was then placed in the supine position on the fluoroscopy table. The RIGHT hip was then prepped with Chloraprep. The anterolateral injection starting point was identiifed by bony landmarks and fluoroscopy. The skin and soft tissue in the tract of the injection was anesthetized with 1% Lidocaine. A spinal needle was then inserted deep into the hip joint at the level of the lateral femoral neck under fluoroscopic guidance. A small amount of Omnipaque solution was injected to confirm intraarticular placement. Once confirmed, the hip was injected with 5cc of 0.5% Bupivicaine and 80mg of Depo-Medrol. A bandaid was placed on the injection site. The patient tolerated the procedure well and noted improvement in pre-injection pain.
== END 2022-05-02 03:36 ==
LOC: DI 03:16
PROVIDERS: PCP Family Medicine; Visit Provider Student in an Organized Health Care Education/Training Program
DX: M25.551 Pain in right hip (principal)
CPT/HCPCS: 20610; 77002; J1040

== ENCOUNTER 2022-09-12 01:41 | Outpatient (CLI) | payer MEDICARE, BC, SELFPAY ==
--- NOTE | 2022-09-12 13:01 | DI.RAD_ITS ---
Exam(s) RF JOINT INJECTION FLUORO GUID EXAM: RF JOINT INJECTION FLUORO GUID CLINICAL HISTORY: RIGHT HIP ARTHRITIS,FLUORO GUIDED INJ, M16.11 TECHNIQUE: Fluoroscopy provided. Radiologist not present. CONTRAST MATERIAL: None COMPARISON: No exams were available for comparison FINDINGS: Fluoroscopy was provided for Dr. Thomas during right hip injection.. Procedure report for details. Please refer to the procedure report for complete details. Cumulative Dose: Ka,r=0.142 mGy IMPRESSION: RADIATION DOSE DELIVERED:
--- NOTE | 2022-09-12 13:05 | W.PROCNOTE ---
Date of service: 09/12/22 Time of Service: 13:05 Procedure Note Date of procedure: 09/12/22 Procedure: Right Hip Injection with Fluoroscopic Guidance Surgeon/Proceduralist/Physician: Yonatan Thomas Procedure Diagnosis: Right Hip Osteoarthritis Procedure Indications: Aixa has had persistent pain of the RIGHT anterior thigh and knee. Noninvasive measures have been tried. Previous injection was very succssful to treat the pain. Thus, a repeat injection under fluoroscopy was recommended. I had discussed the risks of the procedure and the patient elected to proceed. Procedure Description: Aixa was greeted in the flouroscopy room. The correct side was identified and the consent was reviewed with the patient and signed. The patient was then placed in the supine position on the fluoroscopy table. The RIGHT hip was then prepped with Chloraprep. The anterolateral injection starting point was identiifed by bony landmarks and fluoroscopy. The skin and soft tissue in the tract of the injection was anesthetized with 1% Lidocaine. A spinal needle was then inserted deep into the hip joint at the level of the lateral femoral neck under fluoroscopic guidance. A small amount of Omnipaque solution was injected to confirm intraarticular placement. Once confirmed, the hip was injected with 5cc of 0.5% Bupivicaine and 80mg of Depo-Medrol. A bandaid was placed on the injection site. The patient tolerated the procedure well and noted improvement in pre-injection pain.
[2022-09-12] MEDS: Bupivacaine 0.5% Pres-Free 10 ML VIAL 5 ML IJ (13:20)
[2022-09-12] MEDS: methylPREDNISolone ACETATE 80 MG/ML VIAL IM (13:20)
[2022-09-12] MEDS: Omnipaque 300 MG/ML 10 ML BTL 5 ML IJ (13:21)
== END 2022-09-12 02:01 ==
LOC: DI 01:44
PROVIDERS: PCP Family Medicine; Visit Provider Student in an Organized Health Care Education/Training Program
DX: M16.11 Unilateral primary osteoarthritis, right hip (principal)
CPT/HCPCS: 20610; 77002; J1040

== ENCOUNTER 2022-10-25 15:04 | Outpatient (REF) | payer MEDICARE, BC, SELFPAY | END 2022-10-25 15:05 | disposition home or self-care (01) | LOC: LBN 15:04 | PROVIDERS: PCP Family Medicine; Visit Provider Family Medicine | DX: R10.9 Unspecified abdominal pain (principal); R82.998 Other abnormal findings in urine | CPT/HCPCS: 87086 ==

== ENCOUNTER 2022-10-29 02:51 | Outpatient (CLI) | payer MEDICARE, BC, SELFPAY ==
[2022-10-29 12:10] LABS: Abs Immature Grans 0.01 10^3/uL (0.0-0.06); Absolute Basophil Count 0.03 10^3/uL (0.0-0.2); Absolute Eosinophil Count 0.13 10^3/uL (0.0-0.7); Absolute Lymphocyte Count 1.44 10^3/uL (1.2-3.4); Absolute Monocyte Count 0.46 10^3/uL (0.1-0.8); Absolute Neutrophil Count 3.25 10^3/uL (1.2-6.7); Basophils % 0.6; Eosinophils % 2.4; HGB 13.6 g/dL (11.2-15.7); Immature Grans % 0.2; Lymphocytes % 27.1; MCH 30.7 pg (27.0-33.0); MCHC 33.2 % (32.0-36.0); MCV 93 fL (80-95); MPV 9.9 fL (8.0-11.0); Monocytes % 8.6; Neutrophils % 61.1; Platelet Count 274 10^3/uL (130-400); RBC 4.43 10^6/uL (3.93-5.22); RDW 13.7 % (11.7-14.6); RDW-SD 47.1 fL; WBC 5.32 10^3/uL (4.4-10.8)
[2022-10-29 12:30] LABS: ALT 30 U/L (14-59); AST 29 U/L (15-37); Albumin 3.5 g/dL (3.4-5.0); Alkaline Phosphatase 117 U/L (46-116); Anion Gap 9.8 mmol/L (3-11); BUN 25 mg/dL (7-18); Bilirubin, Total 0.6 mg/dL (0.2-1.0); CO2 28.2 mmol/L (21.0-32.0); Calcium 9.3 mg/dL (8.5-10.1); Chloride 103 mmol/L (98-107); Estimated GFR 56.25 (mL/min/1.73m2); Glucose 124 mg/dL (74-106); Iron 90 ug/dL (50-170); Potassium 3.2 mmol/L (3.5-5.1); Sodium 141 mmol/L (136-145); Total Iron Binding Capacity 281 ug/dL (250-450); Total Protein 7.7 g/dL (6.4-8.2); Transferrin Sat 32 % (15-50)
== END 2022-10-29 02:52 | disposition home or self-care (01) ==
LOC: LOS 02:56
PROVIDERS: PCP Family Medicine; Visit Provider Family Medicine
DX: E03.9 Hypothyroidism, unspecified (principal); I10 Essential (primary) hypertension; R06.09 Other forms of dyspnea; R53.83 Other fatigue; I48.91 Unspecified atrial fibrillation; Z79.01 Long term (current) use of anticoagulants
CPT/HCPCS: 36415; 80053; 83540; 83550; 85025

== ENCOUNTER 2022-11-18 08:18 | Emergency (ER) | payer MEDICARE, BC, SELFPAY ==
[2022-11-18] VITALS (17 sets, daily range): BP systolic 138–143; BP diastolic 82–83; PULSE 64–78; RESP 20; TEMP 36.7; O2SAT 94–98
--- NOTE | 2022-11-18 08:49 | W.ED.GENAD ---
Discharge Plan Disposition Patient Disposition: Home Discharge Details Clinical Impression: COVID Primary Care Provider: Piper Malone ED Provider: Imtiaz Emmanuel Home Meds and New Rx's Prescriptions: Continued multivitamin Tablet 1 tab PO DAILY diltiazem HCl [Cardizem CD] 180 mg capsule,extended release 24hr 180 mg PO DAILY Qty: 90 3RF collagen PO acetaminophen 500 mg capsule 500 mg PO Q6H PRN tramadol 50 mg tablet 50 mg PO DAILY PRN (Reason: pain) Qty: 10 0RF Eliquis 5 mg tablet 5 mg PO BID Qty: 180 3RF Discharge Instructions Instructions: COVID-19 (Coronavirus Disease 2019) (ED) Additional Instructions: You may continue to take acetaminophen as directed on packaging for body aches fever chills. Continue to stay well-hydrated and maintain a balanced nutritious diet while ill. At this time and after discussion we have decided to hold off on starting antiviral Paxlovid. If you change your mind please contact your primary care provider or call the emergency department for discussion of this prescription. Of note your Eliquis may significantly interact with this medication and we would need to change your Eliquis dosing while on the antiviral. Return to the emergency department immediately for any new or significant worsening of symptoms otherwise follow-up with your primary care provider if not improving in the next week. Referrals: Piper Malone MD [Primary Care Provider] - (As needed for reassessment) Discharge Data Discharge Date/Time-TO BE ENTERED AT DEPARTURE: 11/18/22 10:46 Medical Decision Making Patient presenting to the emergency department for chief complaint of fever chills body aches and some slight shortness of breath that started on Friday. She took a home COVID test yesterday which was positive. Patient states that she did have COVID in August her son who is a hospitalist was not sure on the accuracy of her home test and suggested she come to the emergency department for evaluation. Patient has history of A-fib, hyperlipidemia, hypertension, and is on Eliquis. Vital signs are stable with specific note to no tachypnea, no hypoxia, no tachycardia and patient is afebrile at this time. Physical exam shows completely clear lung sounds, normal cardiac assessment with auscultation sounding like normal sinus, normal HEENT exam no signs of distress or discomfort at this time. Will recheck PCR COVID testing along with labs given that patient will be a candidate for Paxlovid given her age and medical history and symptoms less than 5 days. Pending results will give acetaminophen to see if this helps with bodyaches. Review of labs show overall unremarkable CBC with slightly decreased lymphocytes, slightly low sodium at 135, potassium 3.4, chloride of 97. BUN slightly elevated at 20 GFR 63 although labs within normal range except for albumin of 3.3. Patient is COVID-positive and is negative for influenza and RSV.. Discussed with patient reassuring labs and vital signs but given her history of A-fib, hypertension, and on anticoagulation patient along with age that she would qualify for Paxlovid. Patient states she is unsure if she wants this medication as she has had COVID in the past and never needed this. Did inform her that it may help with her symptoms but that it is mainly used to help with hospitalization and significant complications from COVID. Shared decision-making was utilized and after full discussion patient decided to hold off on taking medication. Did inform her that I will give her a paper prescription in case she spoke with her son or changed her mind and let her know that she should start it at the latest tomorrow if she chooses to start it which she stated understanding of. After discussion of diagnosis and plan of care patient has no further needs, questions, or concerns and states clear understanding to return to the emergency department for any worsening symptoms. This documentation was generated using eBuddy dictation system, please disregard any oddities of phrase or misspellings. Lab Data Lab results reviewed: Yes I reviewed the patient's lab results. HPI General Mode of arrival: ambulatory. Date/Time Provider Initiated Documentation: 11/18/22 08:24. Limitations to Documentation: no limitations. Information obtained by: patient and RN notes reviewed. History of Present Illness 82 year old F presents to the emergency department with the chief complaint of Fever chills body aches, described as moderate, Quality is described as aching, Patient started experiencing this day(s) (3) and it has been constant. Medication improves symptom(s), No exacerbating factors reported . Patient notes shortness of breath. Patient did receive the following treatments prior to arrival, none Related Data Home Medications Medication Instructions Recorded Confirmed apixaban 5 mg tablet (Eliquis) 5 mg PO BID #180 tabs 03/18/22 11/18/22 diltiazem HCl 180 mg 180 mg PO DAILY #90 caps 04/24/22 11/18/22 capsule,extended release 24 hr (Cardizem CD) multivitamin 1 tab PO DAILY 04/24/22 11/18/22 acetaminophen 500 mg capsule 500 mg PO Q6H PRN 10/25/22 11/18/22 collagen PO 10/25/22 10/25/22 tramadol 50 mg tablet 50 mg PO DAILY PRN pain #10 tabs 10/25/22 11/18/22 Previous Rx's Medication Instructions Recorded apixaban 5 mg tablet (Eliquis) 5 mg PO BID #180 tabs 03/18/22 diltiazem HCl 180 mg 180 mg PO DAILY #90 caps 04/24/22 capsule,extended release 24 hr (Cardizem CD) tramadol 50 mg tablet 50 mg PO DAILY PRN pain #10 tabs 10/25/22 Allergies Allergy/AdvReac Type Severity Reaction Status Date / Time lisinopril AdvReac Intermediate COUGH Verified 11/18/22 08:30 hydrochlorothiazide AdvReac Mild dizziness Verified 11/18/22 08:30 General Stated Complaint: RespSymp JACK: 3 Review of Systems Constitutional Constitutional: Reports body ache(s), Reports chills, Reports fatigue, Reports fever(s), Denies headache(s), Reports malaise and Reports poor appetite ENT Ears, Nose, Mouth, and Throat: Denies headache(s), Denies nasal congestion and Denies sore throat Cardiovascular Cardiovascular: Denies chest pain and Reports dyspnea Respiratory Respiratory: Denies chest congestion, Denies cough and Reports dyspnea Gastrointestinal Gastrointestinal: Denies abdominal pain, Denies diarrhea, Denies nausea and Denies vomiting Genitourinary Genitourinary: Denies difficulty voiding and Denies dysuria Musculoskeletal Musculoskeletal: Reports myalgias Integumentary/Breasts Skin/Breast: Denies rash Neurologic Neurologic: Denies headache(s) Psychiatric Psychiatric: Reports abnormal sleep pattern Endocrine Endocrine: Reports fatigue PFSH All Active Problems (Updated 11/18/22 @ 10:26 by Imtiaz Emmanuel NP) Cystocele (Chronic 07/05/16) Pessary in place. Essential hypertension (Chronic 01/13/13) Osteoporosis (Chronic) Atrial fibrillation (Chronic) Paroxysmal. Some EKG changes. Hyperlipidemia (Acute) Pessary maintenance (Chronic) 04/2021. #4 ring with support replaced by 65mm incontinence dish with support. Leukoplakia, tongue (Chronic) Arthritis of right hip (Chronic) causing her knee pain; improved with PT, hip injection. 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 [place] [facility] [place] Observation post radiation. Family hx-breast malignancy mother Hypothyroidism Normal FT4. Asymptomatic. No rx needed Lichen planus of tongue Osteoarthritis of cervical spine (08/05/17) Recurrent basal cell carcinoma Tibialis anterior tenosynovitis torn tendon, chronic pain, managed by Dr. Thomas. Vaginal irritation from pessary (11/08/16) Ring with support size decreased from #5 to #4 and on 04/23/21 65mm incontinence dish with support inserted. Surgical History S/P breast lumpectomy Family History Mother Breast cancer Father Neoplasm Social History Smoking/Tobacco Use Status: Never Second Hand Exposure: No Smoking risk assessment performed?: Yes Alcohol Intake: current Alcohol Intake frequency: a few times a month Alcohol type: hard liquor Drug use: Never Substance use type: does not use Caregiver/Support person: No Household members: none Housing: house Communication Needs: None Do you need help understanding health information?: Never Pets and animals: No Sexually active: No Do you think of yourself as: straight/heterosexual Current gender identity: female What is your relationship status?: How often do you talk on the phone with friends or family?: three or more times per week How often do you get together with friends or relatives?: twice per week How often do you attend mandaen or hindu services?: 4 or more times per year Do you belong to any clubs or organized social groups?: yes Panel score (0-1 are the most socially isolated patients): 3 What type of physical activity do you participate in: bicycling, other Details: Pilates,stretching,sking and running Duration: > 90 minutes/day Frequency: daily Kasia/Anabaptism: Gnosticist Special kasia needs: No Seatbelt use: always Helmet use: Yes Drive intox or ride w/intox starting gate driver: No Do you feel safe at home: Yes Do you feel safe in your relationship?: Yes Exam Const General: cooperative, comfortable and no acute distress Orientation: alert and awake HENMT Head: normal to inspection, normocephalic and atraumatic Ears: hearing grossly normal bilaterally and TM's normal bilaterally General nose exam: external nose normal Face and sinus: no erythema Mouth: oral mucosae normal, no drooling, no muffled voice and no trismus Throat: posterior oropharynx normal Neck Neck: normal visual inspection, full ROM, no meningeal signs, trachea midline, supple and lymphadenopathy bilateral anterior cervical tender Resp Effort & Inspection: normal respiratory effort and able to speak in complete sentences Auscultation: clear to auscultation bilaterally Cardio Rate: regular rate Rhythm: regular rhythm Heart Sounds: S1 normal, S2 normal, normal S1 and S2, no click, no gallops, no murmurs and no rubs Skin General skin exam: no rashes or lesions noted and dry skin (warm) Neuro General: patient alert, patient awake, patient oriented x3, gait normal and moves all extremities Cognition: normal cognition Speech: speech normal Course Vital Signs Vital signs: Vital Signs Temperature 36.7 C 11/18/22 08:26 Pulse 77 11/18/22 08:26 Respiratory Rate 20 11/18/22 08:26 Blood Pressure 143/82 H 11/18/22 08:26 Pulse Oximetry 98 11/18/22 08:26 Temperature 36.7 C 11/18/22 08:26 Pulse 77 11/18/22 08:26 Respiratory Rate 20 11/18/22 08:26 Respiratory Effort Normal, Non-Labored 11/18/22 08:31 Blood Pressure 143/82 H 11/18/22 08:26 Blood Pressure Position Sitting 11/18/22 08:26 Pulse Oximetry 98 11/18/22 08:26 Oxygen Delivery Method Room Air 11/18/22 08:26 Oxygen Flow Rate 0 11/18/22 08:26 Pain Level 10 11/18/22 08:26
[2022-11-18] MEDS: Acetaminophen 325 MG TAB PO (09:03)
[2022-11-18 09:07] LABS: Abs Immature Grans 0.01 10^3/uL (0.0-0.06); Absolute Basophil Count 0.02 10^3/uL (0.0-0.2); Absolute Eosinophil Count 0.02 10^3/uL (0.0-0.7); Absolute Lymphocyte Count 1.13 10^3/uL (1.2-3.4); Absolute Neutrophil Count 3.69 10^3/uL (1.2-6.7); Basophils % 0.4; Eosinophils % 0.4; HCT 42.2 % (36.0-46.0); HGB 14.2 g/dL (11.2-15.7); Immature Grans % 0.2; Lymphocytes % 19.9; MCH 30.5 pg (27.0-33.0); MCHC 33.6 % (32.0-36.0); MCV 91 fL (80-95); MPV 9.2 fL (8.0-11.0); Monocytes % 14.1; Platelet Count 225 10^3/uL (130-400); RBC 4.66 10^6/uL (3.93-5.22); RDW 13.8 % (11.7-14.6); RDW-SD 46.3 fL; WBC 5.67 10^3/uL (4.4-10.8)
[2022-11-18 09:15] LABS: Influenza A PCR Negative (Negative); Influenza B PCR Negative (Negative); RSV PCR Negative (Negative)
[2022-11-18 09:23] LABS: ALT 23 U/L (14-59); AST 29 U/L (15-37); Albumin 3.3 g/dL (3.4-5.0); Alkaline Phosphatase 89 U/L (46-116); Anion Gap 9.5 mmol/L (3-11); BUN 20 mg/dL (7-18); Bilirubin, Total 0.4 mg/dL (0.2-1.0); CO2 28.5 mmol/L (21.0-32.0); CREATININE 0.9 mg/dL (0.55-1.02); Calcium 8.7 mg/dL (8.5-10.1); Chloride 97 mmol/L (98-107); Estimated GFR 63.83 (mL/min/1.73m2); Glucose 106 mg/dL (74-106); Potassium 3.4 mmol/L (3.5-5.1); Sodium 135 mmol/L (136-145); Total Protein 7.9 g/dL (6.4-8.2)
[2022-11-18 09:44] LABS: COVID-19 PCR Positive (Negative); Source Nasopharynx
== END 2022-11-18 10:46 | disposition home or self-care (01) ==
PROVIDERS: Emergency Provider Nurse Practitioner Family; PCP Family Medicine
DX: U07.1 COVID-19 (principal)
CPT/HCPCS: 36415; 80053; 87637; 99283; 85025

== ENCOUNTER 2022-11-24 14:57 | Emergency (ER) | payer MEDICARE, BC, SELFPAY ==
[2022-11-24 15:01] VITALS: BP 128/65; PULSE 62; RESP 18; TEMP 36.6; O2SAT 97
[2022-11-24 15:40] VITALS: RESP 18
[2022-11-24 16:08] LABS: Abs Immature Grans 0.02 10^3/uL (0.0-0.06); Absolute Basophil Count 0.01 10^3/uL (0.0-0.2); Absolute Eosinophil Count 0.02 10^3/uL (0.0-0.7); Absolute Lymphocyte Count 1.08 10^3/uL (1.2-3.4); Absolute Monocyte Count 0.39 10^3/uL (0.1-0.8); Absolute Neutrophil Count 2.81 10^3/uL (1.2-6.7); Basophils % 0.2; Eosinophils % 0.5; HCT 43.8 % (36.0-46.0); HGB 14.9 g/dL (11.2-15.7); Immature Grans % 0.5; Lymphocytes % 24.9; MCH 30.3 pg (27.0-33.0); MCV 89 fL (80-95); MPV 8.6 fL (8.0-11.0); Neutrophils % 64.9; Platelet Count 289 10^3/uL (130-400); RBC 4.92 10^6/uL (3.93-5.22); WBC 4.33 10^3/uL (4.4-10.8)
[2022-11-24 16:19] LABS: Anion Gap 7.2 mmol/L (3-11); BUN 24 mg/dL (7-18); CO2 29.8 mmol/L (21.0-32.0); Calcium 9.2 mg/dL (8.5-10.1); Chloride 92 mmol/L (98-107); Estimated GFR 56.25 (mL/min/1.73m2); Glucose 116 mg/dL (74-106); Potassium 3.9 mmol/L (3.5-5.1); Sodium 129 mmol/L (136-145)
--- NOTE | 2022-11-24 16:34 | ED.GENADUL_ITS ---
Discharge Plan Disposition Patient Disposition: Home Condition: Stable Discharge Details Clinical Impression: Acute dehydration, COVID Primary Care Provider: Piper Malone ED Provider: Piper Stein Home Meds and New Rx's Prescriptions: Continued multivitamin Tablet 1 tab PO DAILY diltiazem HCl [Cardizem CD] 180 mg capsule,extended release 24hr 180 mg PO DAILY Qty: 90 3RF collagen PO acetaminophen 500 mg capsule 500 mg PO Q6H PRN tramadol 50 mg tablet 50 mg PO DAILY PRN (Reason: pain) Qty: 10 0RF Eliquis 5 mg tablet 5 mg PO BID Qty: 180 3RF No Action hydromorphone 2 mg tablet 1 mg PO Q4H MDD 1 mg PRN (Reason: pain) Qty: 10 0RF Discharge Instructions Instructions: Dehydration (ED) Additional Instructions: Clear liquids advance as tolerated ensuring you are drinking enough to stay well-hydrated. Can use acetaminophen as directed for discomfort Referrals: Piper Malone MD [Primary Care Provider] - Discharge Data Discharge Date/Time-TO BE ENTERED AT DEPARTURE: 11/24/22 18:27 Medical Decision Making This is a very well-appearing 82-year-old female with stable vital signs oxygenating in the high 90s returns complaining of symptoms of fatigue malaise. She was diagnosed with COVID over a week ago offered Paxlovid declined. Although she is hemodynamically stable and appears well I will obtain routine labs to check for dehydration and I will add a procalcitonin. I doubt she has a superimposed bacterial infection. Chest x-ray is unremarkable lung sounds are clear and again oxygenating in the high 90s. I will give her 1 L of fluid and Toradol 15 mg for her body aches. All her labs have been reviewed and unremarkable she is stable and ready for discharge to home Lab Data Lab results reviewed: Yes I reviewed the patient's lab results. Labs: Laboratory Tests Range/Units 11/24/22 11/24/22 11/24/22 16:00 16:00 16:00 WBC (4.4-10.8) 10^3/uL 4.33 L RBC (3.93-5.22) 10^6/uL 4.92 Hgb (11.2-15.7) g/dL 14.9 Hct (36.0-46.0) % 43.8 MCV (80-95) fL 89 MCH (27.0-33.0) pg 30.3 MCHC (32.0-36.0) % 34.0 RDW (11.7-14.6) % 13.0 Plt Count (130-400) 10^3/uL 289 MPV (8.0-11.0) fL 8.6 Immature Gran % 0.5 Neutrophils % 64.9 Lymphocytes % 24.9 Monocytes % 9.0 Eosinophils % 0.5 Basophils % 0.2 Nucleated RBC % (0.0-0.3) % 0.0 Absolute Neutrophils (1.2-6.7) 10^3/uL 2.81 Absolute Lymphocytes (1.2-3.4) 10^3/uL 1.08 L Absolute Monocytes (0.1-0.8) 10^3/uL 0.39 Absolute Eosinophils (0.0-0.7) 10^3/uL 0.02 Absolute Basophils (0.0-0.2) 10^3/uL 0.01 Sodium (136-145) mmol/L 129 L Potassium (3.5-5.1) mmol/L 3.9 Chloride (98-107) mmol/L 92 L Carbon Dioxide (21.0-32.0) mmol/L 29.8 Anion Gap (3-11) mmol/L 7.2 BUN (7-18) mg/dL 24 H Creatinine (0.55-1.02) mg/dL 1.0 Est GFR (CKD-EPI 2020) (mL/min/1.73m2) 56.25 Glucose (74-106) mg/dL 116 H Calcium (8.5-10.1) mg/dL 9.2 Procalcitonin ng/mL < 0.1 HPI General Mode of arrival: ambulatory . Date/Time Provider Initiated Documentation: 11/24/22 15:11 . Limitations to Documentation: no limitations . Information obtained by: patient . HPI Narrative: Is a 82-year-old female patient who presents with ongoing symptoms of malaise fatigue reporting some GI upset. She was diagnosed with COVID a week ago no respiratory symptoms no cough shortness of breath chest pain or dizziness. Has been taking oral intake but decreased Related Data Home Medications Medication Instructions Recorded Confirmed apixaban 5 mg tablet (Eliquis) 5 mg PO BID #180 tabs 03/18/22 11/26/22 diltiazem HCl 180 mg 180 mg PO DAILY #90 caps 04/24/22 11/26/22 capsule,extended release 24 hr (Cardizem CD) multivitamin 1 tab PO DAILY 04/24/22 11/26/22 acetaminophen 500 mg capsule 500 mg PO Q6H PRN 10/25/22 11/26/22 collagen PO 10/25/22 11/26/22 tramadol 50 mg tablet 50 mg PO DAILY PRN pain #10 tabs 10/25/22 11/26/22 hydromorphone 2 mg tablet 1 mg PO Q4H PRN pain #10 tabs 11/26/22 11/26/22 Previous Rx's Medication Instructions Recorded apixaban 5 mg tablet (Eliquis) 5 mg PO BID #180 tabs 03/18/22 diltiazem HCl 180 mg 180 mg PO DAILY #90 caps 04/24/22 capsule,extended release 24 hr (Cardizem CD) tramadol 50 mg tablet 50 mg PO DAILY PRN pain #10 tabs 10/25/22 hydromorphone 2 mg tablet 1 mg PO Q4H PRN pain #10 tabs 11/26/22 Allergies Allergy/AdvReac Type Severity Reaction Status Date / Time lisinopril AdvReac Intermediate COUGH Verified 11/26/22 09:33 hydrochlorothiazide AdvReac Mild dizziness Verified 11/26/22 09:33 General Stated Complaint: GenMedical JACK: 4 Review of Systems All systems reviewed & are unremarkable except as noted in HPI and below PFSH All Active Problems (Updated 11/26/22 @ 12:17 by Piper Stein NP) Cystocele (Chronic 07/05/16) Pessary in place. Essential hypertension (Chronic 01/13/13) Osteoporosis (Chronic) Atrial fibrillation (Chronic) Paroxysmal. Some EKG changes. Hyperlipidemia (Acute) Pessary maintenance (Chronic) 04/2021. #4 ring with support replaced by 65mm incontinence dish with support. Leukoplakia, tongue (Chronic) Arthritis of right hip (Chronic) causing her knee pain; improved with PT, hip injection. 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 12/2018 evaluation at [facility] breast care center. Observation post radiation. Family hx-breast malignancy mother Hypothyroidism Normal FT4. Asymptomatic. No rx needed Lichen planus of tongue Osteoarthritis of cervical spine (08/05/17) Recurrent basal cell carcinoma Tibialis anterior tenosynovitis torn tendon, chronic pain, managed by Dr. Thomas. Vaginal irritation from pessary (11/08/16) Ring with support size decreased from #5 to #4 and on 04/23/21 65mm incontinence dish with support inserted. Surgical History S/P breast lumpectomy Family History Mother Breast cancer Father Neoplasm Social History Smoking/Tobacco Use Status: Never Second Hand Exposure: No Smoking risk assessment performed?: Yes Alcohol Intake: current Alcohol Intake frequency: a few times a month Alcohol type: hard liquor Drug use: Never Substance use type: does not use Caregiver/Support person: No Household members: none Housing: house Communication Needs: None Do you need help understanding health information?: Never Pets and animals: No Sexually active: No Do you think of yourself as: straight/heterosexual Current gender identity: female What is your relationship status?: How often do you talk on the phone with friends or family?: three or more times per week How often do you get together with friends or relatives?: twice per week How often do you attend mormonism or methodist services?: 4 or more times per year Do you belong to any clubs or organized social groups?: yes Panel score (0-1 are the most socially isolated patients): 3 What type of physical activity do you participate in: bicycling, other Details: Pilates,stretching,sking and running Duration: > 90 minutes/day Frequency: daily Kasia/Temple: Mormonism Special kasia needs: No Seatbelt use: always Helmet use: Yes Drive intox or ride w/intox wrecking car driver: No Do you feel safe at home: Yes Do you feel safe in your relationship?: Yes Exam Const General: cooperative, healthy appearing and comfortable Nutritional Appearance: average body habitus Orientation: alert, awake and oriented x3 HENMT Head: normal to inspection, normocephalic and atraumatic Course Vital Signs Vital signs: Vital Signs Temperature 36.6 C 11/24/22 15:01 Pulse 62 11/24/22 15:01 Respiratory Rate 18 11/24/22 15:01 Blood Pressure 128/65 11/24/22 15:01 Pulse Oximetry 97 11/24/22 15:01 Temperature 36.6 C 11/24/22 15:01 Temperature Source Tympanic 11/24/22 15:01 Pulse 62 11/24/22 15:01 Respiratory Rate 18 11/24/22 15:40 Respiratory Effort Normal, Non-Labored 11/24/22 15:40 Respiratory Depth Normal 11/24/22 15:40 Respiratory Pattern Normal 11/24/22 15:40 Blood Pressure 128/65 11/24/22 15:01 Blood Pressure Position Sitting 11/24/22 15:01 Pulse Oximetry 97 11/24/22 15:01 Oxygen Delivery Method Room Air 11/24/22 15:01 Oxygen Flow Rate 0 11/24/22 15:01 Lab/Test Results Lab/Test Results: Laboratory Tests Range/Units 11/24/22 11/24/22 16:00 16:00 WBC (4.4-10.8) 10^3/uL 4.33 L RBC (3.93-5.22) 10^6/uL 4.92 Hgb (11.2-15.7) g/dL 14.9 Hct (36.0-46.0) % 43.8 MCV (80-95) fL 89 MCH (27.0-33.0) pg 30.3 MCHC (32.0-36.0) % 34.0 RDW (11.7-14.6) % 13.0 Plt Count (130-400) 10^3/uL 289 MPV (8.0-11.0) fL 8.6 Immature Gran % 0.5 Neutrophils % 64.9 Lymphocytes % 24.9 Monocytes % 9.0 Eosinophils % 0.5 Basophils % 0.2 Nucleated RBC % (0.0-0.3) % 0.0 Absolute Neutrophils (1.2-6.7) 10^3/uL 2.81 Absolute Lymphocytes (1.2-3.4) 10^3/uL 1.08 L Absolute Monocytes (0.1-0.8) 10^3/uL 0.39 Absolute Eosinophils (0.0-0.7) 10^3/uL 0.02 Absolute Basophils (0.0-0.2) 10^3/uL 0.01 Sodium (136-145) mmol/L 129 L Potassium (3.5-5.1) mmol/L 3.9 Chloride (98-107) mmol/L 92 L Carbon Dioxide (21.0-32.0) mmol/L 29.8 Anion Gap (3-11) mmol/L 7.2 BUN (7-18) mg/dL 24 H Creatinine (0.55-1.02) mg/dL 1.0 Est GFR (CKD-EPI 2020) (mL/min/1.73m2) 56.25 Glucose (74-106) mg/dL 116 H Calcium (8.5-10.1) mg/dL 9.2 PAWSS Have you Been Recently Intoxicated or Drunk Within the Last 30 days?: No Have you Ever Experienced Previous Episodes of Alcohol Withdrawal?: No Have you ever Experienced Withdrawal Seizures?: No Have you ever Experienced Delirium Tremens(DT)s?: No Have you ever undergone Alcohol Rehabilitation Treatment (i.e, inpt ot out patient treatment programs)?: No Have you ever Experienced Blackouts?: No Have you ever Combined Alcohol with other Downers within the last 90 days?: No Have you ever Combined Alcohol with any other Substance of Abuse during the last 90 days?: No Result: 0
[2022-11-24 16:53] LABS: Procalcitonin < 0.1 ng/mL
[2022-11-24] MEDS: Normal Saline 500 ML IV (17:16)
[2022-11-24] MEDS: Ketorolac 15 MG/ML VIAL IVP (17:17)
== END 2022-11-24 18:27 | disposition home or self-care (01) ==
PROVIDERS: Emergency Provider Nurse Practitioner Acute Care; PCP Family Medicine
DX: M79.10 Myalgia, unspecified site (principal); E86.0 Dehydration; I10 Essential (primary) hypertension; I48.0 Paroxysmal atrial fibrillation; Z79.01 Long term (current) use of anticoagulants
CPT/HCPCS: 80048; 84145; 96374; 99283; 85025; J1885

== ENCOUNTER → 2022-11-26 13:18 | Outpatient (CLI) | payer MEDICARE, BC, SELFPAY ==
--- NOTE | 2022-11-26 10:30 | DI.CT_ITS ---
Exam(s) CT ABDOMEN PELVIS W EXAM: CT ABDOMEN PELVIS W CLINICAL HISTORY: severe pain R10.31 RLQ PAIN. TECHNIQUE: Imaging Protocol: Axial computed tomography images with coronal and sagittal reformatted images were created and reviewed CONTRAST MATERIAL: Intravenous: Omnipaque 350 Contrast volume:100 ml Oral: yes / FINDINGS: ABDOMEN: Lung Bases: Normal where visualized. Heart is enlarged. Liver: Normal density. No measurable mass. Gallbladder and biliary tract: No radiodense calculus or dilation. Pancreas: Normal density, no abnormal calcifications or inflammatory process. Spleen: Normal size. Small focal area of decreased perfusion at the inferior tip of the spleen. T he findings could represent a small infarct. The splenic arteries and vena appear patent and normal in diameter at the not show significant atherosclerotic changes. Kidneys: Normal size and parenchymal thickness. Congenital incomplete rotation of both kidneys. Rafi ateral cysts.. No radiodense stones or obstructive uropathy. No suspicious masses seen. Adrenal glands: No masses seen. Abdominal Aorta: Abdominal portion non-dilated. Mild atherosclerotic changes. Soft tissues: Unremarkable. PELVIS: Bladder: No gross wall thickening. No calculi.No focal mass. Pessary noted. Bowel: No obstruction. No bowel wall thickening. Moderate quantity of stool. No evidence of append icitis. Peritoneal cavity: No ascites, collection or mesenteric inflammatory response. Bones: Degenerative changes in the right hip. Mild degenerative changes in the lumbar spine.. No co mpression fractures. Reproductive organs: Retroverted uterus. Within normal limits. Lymph nodes: Unremarkable. Impression: Decreased perfusion to small portion of the inferior spleen could represent small splenic infarct. T he arteries and vein appear patent. RADIATION DOSE DELIVERED: 684.93mGy.cm Total DLP DATA REPOSITORY: All CT scans at this facility are submitted to the National Radiology Data Registry (NRDR) Dose Index Registry (DIR) with the [employer] (ACR). RADIATION OPTIMIZATION: All CT scans at this facility use at least one of these dose optimization te chniques: automated exposure control; mA and/or kV adjustment per patient size (includes targeted exa ms where dose is matched to clinical indication); or iterative reconstruction.
[2022-11-26] MEDS: Barium Sulfate 2% W/V-Creamy Vanilla Smoothie 450 ML BTL PO (11:22)
[2022-11-26] MEDS: Barium Sulfate 2% W/V-Berry Smoothie 450 ML BTL PO (11:22)
[2022-11-26 11:24] LABS: Abs Immature Grans 0.02 10^3/uL (0.0-0.06); Absolute Basophil Count 0.02 10^3/uL (0.0-0.2); Absolute Eosinophil Count 0.02 10^3/uL (0.0-0.7); Absolute Lymphocyte Count 1.32 10^3/uL (1.2-3.4); Absolute Monocyte Count 0.89 10^3/uL (0.1-0.8); Absolute Neutrophil Count 4.81 10^3/uL (1.2-6.7); Basophils % 0.3; Eosinophils % 0.3; HCT 43.3 % (36.0-46.0); HGB 15.3 g/dL (11.2-15.7); Immature Grans % 0.3; Lymphocytes % 18.6; MCH 30.8 pg (27.0-33.0); MCHC 35.3 % (32.0-36.0); MCV 87 fL (80-95); MPV 9.1 fL (8.0-11.0); Monocytes % 12.6; Neutrophils % 67.9; Platelet Count 333 10^3/uL (130-400); RBC 4.97 10^6/uL (3.93-5.22); RDW 12.8 % (11.7-14.6); RDW-SD 40.5 fL; WBC 7.08 10^3/uL (4.4-10.8)
[2022-11-26 11:30] LABS: ESR 43 mm/hr (0-30)
[2022-11-26 11:39] LABS: ALT 28 U/L (14-59); AST 25 U/L (15-37); Albumin 3.9 g/dL (3.4-5.0); Alkaline Phosphatase 96 U/L (46-116); Anion Gap 11.6 mmol/L (3-11); BUN 18 mg/dL (7-18); Bilirubin, Total 0.9 mg/dL (0.2-1.0); CO2 28.4 mmol/L (21.0-32.0); CREATININE 1.1 mg/dL (0.55-1.02); Calcium 9.5 mg/dL (8.5-10.1); Chloride 94 mmol/L (98-107); Estimated GFR 50.17 (mL/min/1.73m2); Glucose 120 mg/dL (74-106); Sodium 134 mmol/L (136-145)
[2022-11-26 12:42] LABS: C-Reactive Protein 0.09 mg/dL (0.0-0.3)
[2022-11-26] MEDS: Omnipaque 350 MG/ML 100 ML BTL IJ (13:22)
[2022-11-26] MEDS: Normal Saline - Diluent 50 ML VIAL IJ (13:22)
[2022-11-27 10:13] LABS: Lyme Ab w Rflx to Lyme Confirm Positive (Negative)
[2022-11-27 11:59] LABS: Lyme IgG Ab Positive (Negative); Lyme IgM Ab Positive (Negative)
[2022-11-29 09:39] LABS: Anaplasma phagocytophilum Negative (Negative); B. miyamotoi PCR Negative (Negative); Babesia divergens/MO-1 Negative (Negative); Babesia duncani Negative (Negative); Babesia microti Negative (Negative); Ehrlichia chaffeensis Negative (Negative); Ehrlichia ewingii/canis Negative (Negative); Ehrlichia muris eauclairensis Negative (Negative)
== END ==
PROVIDERS: PCP Family Medicine; Visit Provider Nurse Practitioner Family
DX: R10.31 Right lower quadrant pain; N28.1 Cyst of kidney, acquired
CPT/HCPCS: 36415; 80053; 85652; 86617; 87798; 74177; 85025; 86140; 86618; J3490

== ENCOUNTER 2022-11-26 16:59 | Outpatient (REF) | payer MEDICARE, BC, SELFPAY | END 2022-11-26 17:00 | disposition home or self-care (01) | LOC: LOS 16:59 | PROVIDERS: PCP Family Medicine; Visit Provider Nurse Practitioner Family | DX: R10.31 Right lower quadrant pain (principal); R53.1 Weakness; R82.998 Other abnormal findings in urine; R82.79 Other abnormal findings on microbiological examination of urine | CPT/HCPCS: 36415; 80053; 85652; 86617; 87798; 74177; 85025; 86140; 86618; 87086; J3490 ==

== ENCOUNTER → 2022-12-10 01:23 | Outpatient (CLI) | payer MEDICARE, BC, SELFPAY ==
[2022-12-10] MEDS: Omnipaque 350 MG/ML 500 ML BTL-Imaging package 100 ML IJ (08:44)
[2022-12-10 08:47] LABS: Anion Gap 5.7 mmol/L (3-11); BUN 31 mg/dL (7-18); CO2 29.3 mmol/L (21.0-32.0); Calcium 9.2 mg/dL (8.5-10.1); Chloride 101 mmol/L (98-107); Estimated GFR 56.25 (mL/min/1.73m2); Glucose 91 mg/dL (74-106); Magnesium 2.1 mg/dL (1.8-2.4); Potassium 4.2 mmol/L (3.5-5.1); Sodium 136 mmol/L (136-145)
[2022-12-10] MEDS: Normal Saline Flush 10 ML SYR IJ (08:49)
--- NOTE | 2022-12-10 08:51 | DI.CT_ITS ---
Exam(s) CT ABDOMEN CTA EXAM: CT ABDOMEN CTA CLINICAL HISTORY: abd pain, infarction of spleen, D73.5. TECHNIQUE: Imaging Protocol: Axial CT angiography was performed with multi-slice acquisition and m ulti-planar and/or 3D reconstructions. Noncontrast, arterial and venous imaging was performed of the abdomen. CONTRAST MATERIAL: Intravenous: Omnipaque 350 Contrast volume:100mL Oral: No CT CT ABDOMEN PELVIS W from 11/26/2022 FINDINGS: ABDOMEN AND PELVIS: Abdomen: Celiac axis/mesenteric arteries: No evidence of occlusion or significant stenosis. The splenic artery is patent. Renal Arteries: No evidence of occlusion or significant stenosis. Aorta: No evidence of occlusion or significant stenosis. No aneurysm or dissection. Atherosclerosis. ABDOMEN: Lung bases: Cardiomegaly. Nonspecific dependent atelectasis is present. Liver: Normal density. No measurable mass. Portal, Superior Mesenteric, and Splenic Veins: Unremarkable. Gallbladder and Biliary Tract: No radiodense calculus or dilation. Pancreas: Normal density, no abnormal calcifications or inflammatory process. Spleen: There is a persistent area of decreased wedge-shaped attenuation in the inferior aspect of th e spleen. It measures 2.0 x 3.8 x 1.5 cm. On the arterial images there is some peripheral hyper den sity which is isointense to the aorta. This area becomes isodense to the rest of the spleen on the v enous images. The spleen is otherwise unremarkable. Adrenals: No masses seen. Kidneys: Normal size, contour and axis. No radiodense stones or obstructive uropathy. There is a simp le 1.8 cm cyst in the left kidney. No follow-up is recommended. Bowel: No obstruction or bowel wall thickening. Peritoneal Cavity: No ascites, collection or mesenteric inflammatory response. No free air. Lymph Nodes: Within normal limits. Bones: Unremarkable. Soft Tissues: Unremarkable. IMPRESSION: 1. 2.0 x 3.8 x 1.5 cm area of decreased attenuation in the spleen. Differential considerations inclu de splenic infarct or hemangioma. Neoplasm cannot be entirely excluded. MRI without and with contra st of the spleen may be obtained with delayed imaging. 2. Patent splenic artery and vein. RADIATION DOSE DELIVERED: 793.01 mGy.cm Total DLP DATA REPOSITORY: All CT scans at this facility are submitted to the National Radiology Data Registry (NRDR) Dose Index Registry (DIR) with the [employer] (ACR). RADIATION OPTIMIZATION: All CT scans at this facility use at least one of these dose optimization te chniques: automated exposure control; mA and/or kV adjustment per patient size (includes targeted exa ms where dose is matched to clinical indication); or iterative reconstruction.
[2022-12-10] MEDS: Normal Saline - Diluent 50 ML VIAL IJ (09:22)
== END ==
PROVIDERS: PCP Family Medicine; Visit Provider Nurse Practitioner Family
DX: D73.5 Infarction of spleen (principal); E87.6 Hypokalemia; R10.84 Generalized abdominal pain
CPT/HCPCS: 74175; 80048; 83735

== ENCOUNTER → 2023-03-21 00:21 | Outpatient (CLI) | payer MEDICARE, BC, SELFPAY ==
--- NOTE | 2023-03-21 11:14 | DI.MAMMO_ITS ---
Exam(s) MG MAMMO SCREENING 60 MIN DUR EXAM: MG MAMMO SCREENING 60 MIN DUR CLINICAL HISTORY: breast cancer screening,Z12.39,PERSONAL H/O BREAST CA. TECHNIQUE: Bilateral full field digital CC and MLO mammographic images were obtained with 3D tomosyn thesis and utilizing computer aided detection (CAD). COMPARISON: Prior outside mammograms were reviewed. Left lumpectomy for malignancy in 2019 FINDINGS: The left breast lumpectomy site remains stable. No new left breast findings No new right breast findings. There are no new spiculated masses nor malignant appearing microcalcification groups. IMPRESSION: No radiographic evidence of malignancy. Stable left breast technique site appearance. BI-RADS Category 2 - Benign Findings Breast Density - Category B - Scattered areas of fibroglandular density Breast density Category C or D implies that the patient has dense breast tissue. Dense breast tissue can make it harder to find cancer on a mammogram. Dense breast tissue is also associated with an incr eased risk of breast cancer. This information about the result of the mammogram report was provided to the patient to raise their awareness. Use this report when you speak with the patient about their risks for breast cancer, which includes their family history. At that time, you may recommend additional screening tests (Ultrasoun d or MRI) as these tests may add significant information. A negative radiographic report should not delay biopsy if a dominant or clinically suspicious mass is present. Up to ten percent of cancers are not identified on mammography. A negative report may reinforce clinical impression. Adenosis and dense breasts may obscure an underlying neoplasm. False positive reports average 6 to 10%. Patient will receive a letter notifying them of these results.
== END ==
PROVIDERS: PCP Family Medicine; Visit Provider Family Medicine
DX: Z12.31 Encounter for screening mammogram for malignant neoplasm of breast (principal); Z98.890 Other specified postprocedural states
CPT/HCPCS: 77063; 77067

== ENCOUNTER 2023-06-05 14:57 | Outpatient (CLI) | payer MEDICARE, BC, SELFPAY ==
--- NOTE | 2023-06-05 11:57 | DI.RAD_ITS ---
Exam(s) XR PELVIS AP EXAM: XR PELVIS AP CLINICAL HISTORY: RIGHT HIP PAIN. TECHNIQUE: 2D digital imaging was performed.One images were obtained. COMPARISON: CR XR HIP RT COMPLETE AP PELVIS from 04/22/2022 FINDINGS: A single AP view of the pelvis was obtained with a marker ball in place. There again seen moderate d egenerative changes of the left hip which appears stable. Findings are characterized by joint space narrowing and acetabular spurring. The left hip is well maintained. There is a pessary in place. V ascular calcifications are present. IMPRESSION: Stable degenerative changes in the right hip. DATA REPOSITORY: RADIATION DOSE DELIVERED:
== END 2023-06-05 14:58 | disposition home or self-care (01) ==
LOC: DIORS 14:57
PROVIDERS: PCP Family Medicine; Referring Provider Family Medicine; Visit Provider Student in an Organized Health Care Education/Training Program
DX: M16.11 Unilateral primary osteoarthritis, right hip (principal)
CPT/HCPCS: 99213; 72170

== ENCOUNTER 2023-06-20 01:55 | Outpatient (CLI) | payer MEDICARE, BC, SELFPAY ==
[2023-06-20 12:49] LABS: HCT 44.8 % (36.0-46.0); HGB 14.8 g/dL (11.2-15.7); MCH 30.6 pg (27.0-33.0); MCV 93 fL (80-95); MPV 9.5 fL (8.0-11.0); Platelet Count 271 10^3/uL (130-400); RBC 4.84 10^6/uL (3.93-5.22); RDW 13.7 % (11.7-14.6); RDW-SD 46.7 fL; WBC 4.96 10^3/uL (4.4-10.8)
[2023-06-20 13:19] LABS: Anion Gap 7.5 mmol/L (3-11); BUN 29 mg/dL (7-18); CO2 32.5 mmol/L (21.0-32.0); CREATININE 1.1 mg/dL (0.55-1.02); Calcium 10.1 mg/dL (8.5-10.1); Chloride 101 mmol/L (98-107); Estimated GFR 49.86 (mL/min/1.73m2); Glucose 97 mg/dL (74-106); Sodium 141 mmol/L (136-145)
== END 2023-06-20 01:56 | disposition home or self-care (01) ==
LOC: LBO 01:56
PROVIDERS: PCP Family Medicine; Visit Provider Student in an Organized Health Care Education/Training Program
DX: M16.11 Unilateral primary osteoarthritis, right hip (principal); Z01.818 Encounter for other preprocedural examination
CPT/HCPCS: 36415; 80048; 85027

== ENCOUNTER 2023-07-01 08:16 | Day surgery (SDC) | payer MEDICARE, BC, SELFPAY ==
[2023-07-01] VITALS (7 sets, daily range): BP systolic 96–155; BP diastolic 55–77; PULSE 55–70; RESP 12–19; TEMP 36–36.6; O2SAT 97–99; BMI 20.7
--- NOTE | 2023-07-01 08:30 | DI.RAD_ITS ---
Exam(s) XR HIP RT IN OR EXAM: XR HIP RT IN OR CLINICAL HISTORY: Arthritis of right hip. TECHNIQUE: 2D and realtime digital imaging was performed. COMPARISON: CR XR PELVIS AP from 06/05/2023 FINDINGS: Hard copy images show placement of a right hip prosthesis. The alignment appears satisfactory. Please see procedure note for details. Fluoro time: 28Seconds RADIATION DOSE DELIVERED: Ka,r=2.13 mGy
[2023-07-01] MEDS: Acetaminophen 500 MG TAB 1000 MG PO (08:56)
[2023-07-01] MEDS: Celecoxib 200 MG CAP 400 MG PO (08:56)
--- NOTE | 2023-07-01 09:03 | W.PM.DSUDISC ---
Date of service: 07/01/23 Time of Service: 09:03 Discharge Plan Disposition Patient Disposition: Home Condition: Good Discharge Details Reason For Visit: R THR Attending Provider: Yonatan Thomas Primary Care Provider: Piper Malone Home Meds and New Rx's Prescriptions: New celecoxib 200 mg capsule 200 mg PO BID Qty: 60 0RF acetaminophen 500 mg tablet 1,000 mg PO TID Qty: 90 3RF pantoprazole 40 mg tablet,delayed release (DR/EC) 40 mg PO DAILY Qty: 30 0RF dexamethasone 4 mg tablet 4 mg PO DAILY Qty: 2 0RF oxycodone 5 mg tablet 5 mg PO Q4H MDD 6 tabs PRN (Reason: pain) Qty: 20 0RF Continued multivitamin Tablet 1 tab PO DAILY cyanocobalamin (vitamin B-12) [Vitamin B-12] 500 mcg tablet 500 mcg PO DAILY cholecalciferol (vitamin D3) [Vitamin D3] 25 mcg (1,000 unit) tablet 25 mcg PO DAILY Eliquis 5 mg tablet 5 mg PO BID Qty: 180 3RF Hold Instructions: Changed by Provider diltiazem HCl [Cardizem CD] 180 mg capsule,extended release 24hr 180 mg PO DAILY Qty: 90 3RF Discharge Instructions Additional Instructions: Total Hip Discharge Instructions Activity: The most important activity is to walk. You should try to take short walks a few times a day. You have no restrictions on movement or positioning, but do not try to force what you do. You will find some stiffness and weakness with hip flexion (lifting your knee). Do not try to strengthen this too early, continue to practice walking and stairs and this will come. - Outpatient physical therapy can be helpful to help return you to a normal gait and improve your flexibility and strength. This can start around 2 weeks. For some patients, it?s not necessary. Usually this is determined at the time of discharge or at the first post-operative visit. - You should wear the EBONY hose on both legs for 2 weeks. Dressing: Keep the surgical dressing in place for at least one week. After the first week it may be removed and replace with light gauze and tape or nothing. It may get wet after 3 days but avoid soaking the dressing. If it gets wet, just lightly pat dry. It is important to always keep some gauze between skin folds, especially when you are sitting. Spend some time with the wound exposed when you are lying flat as the incision does wrinkle onto itself. Medications: - You should take Tylenol and an anti-inflammatory Celebrex as your primary pain control medications. If the Celebrex is too expensive or not covered, please call the office for another alternative (Advil/Ibuprofen or Naproxen/Aleve). - You have been prescribed a stronger pain medication Oxycodone for breakthrough pain, take as needed as prescribed. - You have also been prescribed a stomach acid reduction agent Pantoprozole to help reduce stomach acid and reflux. - You have also been prescribed Decadron to help with post-operative nausea and pain. You will take this for two days starting tomorrow. - You will be taking Apixaban 5mg twice daily for DVT prevention unless instructed otherwise. - If you have constipation you should take Colace or Miralax (both [id number]). It takes most people 3-4 days to have a bowel movement. Follow-up: 2 weeks If you have any acute concerns or questions, please do not hesitate to contact the office at [phone]. You may contact Dr. Thomas with any questions after hours through the hospital at [phone] or on his cell phone at [phone]. Stand Alone Forms: Anesthesia Discharge Inst., Felicitas Alvarenga ([facility]) Referrals: Yonatan Thomas MD [ [facility] STAFF PHYSICIAN] - 07/14/23 10:00 am Equipment/Supplies: Walker Activity:: Activity as Tolerated Shower/Bathe:: 72 hours Diet:: As Tolerated Discharge Orders Discharge Orders: Discharge Order (Routine); Ordered 07/01/23 Ordered By: Silviano Trejo DS: Diagnosis Discharge Diagnosis (1) Arthritis of right hip: Status: Chronic
[2023-07-01] MEDS: Lactated Ringers 1,000 ML 80 ML IV (09:16)
--- NOTE | 2023-07-01 09:24 | W.ANESPRE ---
General Info Date of Service Date Performed: 07/01/23 Height: 5 ft 7 in Weight: 60 kg Body Mass Index (BMI): 20.7 Surgical Procedure: Operation Date: 07/01/23 11:20 Proposed Procedure Side Surgeon p Hip Total Hip Anterior, Corail Short Neck Right Yonatan Thomas MD Meds Allergies and Home Medications Allergies Allergy/AdvReac Type Severity Reaction Status Date / Time lisinopril AdvReac Intermediate COUGH Verified 06/27/23 15:10 hydrochlorothiazide AdvReac Mild dizziness Verified 06/27/23 15:10 Home Medication Medication Instructions Recorded multivitamin 1 tab PO DAILY 04/24/22 apixaban 5 mg tablet (Eliquis) 5 mg PO BID #180 tabs 03/10/23 diltiazem HCl 180 mg 180 mg PO DAILY #90 caps 06/09/23 capsule,extended release 24 hr (Cardizem CD) cholecalciferol (vitamin D3) 25 25 mcg PO DAILY 06/17/23 mcg (1,000 unit) tablet (Vitamin D3) cyanocobalamin (vitamin B-12) 500 500 mcg PO DAILY 06/17/23 mcg tablet (Vitamin B-12) acetaminophen 500 mg tablet 1,000 mg (2 x 500 mg) PO TID #90 07/01/23 tabs celecoxib 200 mg capsule 200 mg PO BID #60 caps 07/01/23 dexamethasone 4 mg tablet 4 mg PO DAILY #2 tabs 07/01/23 oxycodone 5 mg tablet 5 mg PO Q4H PRN pain #20 tabs 07/01/23 pantoprazole 40 mg tablet,delayed 40 mg PO DAILY #30 tabs 07/01/23 release Current Visit Medications: Current Medications Generic Name Dose Route Start Last Admin Trade Name Freq PRN Reason Stop Dose Admin Acetaminophen 1,000 mg 07/01/23 06:00 07/01/23 08:56 Acetaminophen 500 Mg Tab PO 07/31/23 05:59 1,000 mg PREOP KARSON Administration Acetaminophen 1,000 mg 07/01/23 08:56 Acetaminophen 500 Mg Tab PO 07/31/23 08:55 TID PRN PRN Analgesia Celecoxib 400 mg 07/01/23 06:00 07/01/23 08:56 Celecoxib 200 Mg Cap PO 07/31/23 05:59 400 mg PREOP KARSON Administration Docusate Sodium 100 mg 07/01/23 08:56 Docusate Sodium 100 Mg Cap PO 07/31/23 08:55 BID PRN PRN Constipation Tranexamic Acid/Sodium Chloride 100 mls @ 600 mls/hr 07/01/23 06:00 IVPB 07/31/23 05:59 PREOP KARSON Ringer's Solution 1,000 mls @ 80 mls/hr 07/01/23 06:00 07/01/23 09:16 IV 07/01/23 23:59 80 mls/hr INFUSION KARSON Administration Cefazolin Sodium/Dextrose 2 gm in 50 mls @ 100 mls/hr 07/01/23 06:00 Ancef Duplex IVPB 07/01/23 23:59 PREOP KARSON IV Miscellaneous Supplies 1 each 07/01/23 06:00 Iv Access IV 07/01/23 23:59 DIRECTED KARSON Ondansetron HCl 4 mg 07/01/23 08:56 Ondansetron 4 Mg/2 Ml Vial IVP 07/31/23 08:55 Q6H PRN PRN Nausea Polyethylene Glycol 17 gm 07/01/23 08:56 Polyethylene Glycol 3350 17 Gm Packet PO 07/31/23 08:55 BID PRN PRN Constipation Sodium Chloride 0 ml 07/01/23 06:00 Normal Saline Flush 10 Ml Syr IV 07/01/23 23:59 PRN PRN Sodium Chloride 0 ml 07/01/23 06:00 Normal Saline 10 Ml Vial IJ 07/01/23 23:59 DIRECTED PRN Sterile Water 0 ml 07/01/23 06:00 Water,Injection,Sterile 10 Ml Vial IJ 07/01/23 23:59 DIRECTED PRN Tramadol HCl 50 mg 07/01/23 08:56 Tramadol 50 Mg Tab PO 07/31/23 08:55 Q4H PRN PRN Pain PFSH Active Problems Active Problems: Problem Status Onset Code Cystocele 07/05/16 Essential hypertension 01/13/13 I10 Osteoporosis M81.0 Atrial fibrillation I48.91 Hyperlipidemia E78.5 Pessary maintenance Z46.89 Arthritis of right hip M16.11 Chronic anticoagulation Z79.01 Basal cell carcinoma, face ~12/2022 C44.310 Medical History Medical History Lyme disease, unspecified (~11/2022) Splenic infarct seen on CT and CTA done for LUQ pain; resolved pain. 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 Thomas. 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 12/2018 evaluation at [facility]. Observation post radiation. Hypothyroidism Normal FT4. Asymptomatic. No rx needed Family hx-breast malignancy mother Vaginal irritation from pessary (11/08/16) Ring with support size decreased from #5 to #4 and on 04/23/21 65mm incontinence dish with support inserted. Osteoarthritis of cervical spine (08/05/17) Diverticula of colon (03/18/17) Recurrent basal cell carcinoma Medical History Comments:: 07/01/23: pt did not take Dilitazem this morning. Surgical History Surgical History S/P breast lumpectomy Tobacco Smoking/Tobacco Use Status: Never Passive smoking exposure: Yes Second hand exposure: No Alcohol Alcohol Intake: current Alcohol intake frequency: a few times a month Alcohol type: hard liquor Substance Use Substance use: Never Substance use type: does not use Vital Signs and Lab Results Vital Signs Most Recent Vital Signs in EMR: Most Recent Vital Signs Temp Pulse Resp BP Pulse Ox 36 C L 65 16 155/77 H 97 07/01/23 08:33 07/01/23 08:33 07/01/23 08:33 07/01/23 08:33 07/01/23 08:33 Lab Results Blood Type / Crossmatch: No Data to Display Complete Blood Count: White Blood Count 4.96 10^3/uL (4.4-10.8) 06/20/23 12:15 Red Blood Count 4.84 10^6/uL (3.93-5.22) 06/20/23 12:15 Hemoglobin 14.8 g/dL (11.2-15.7) 06/20/23 12:15 Hematocrit 44.8 % (36.0-46.0) 06/20/23 12:15 Platelet Count 271 10^3/uL (130-400) 06/20/23 12:15 Complete Metabolic Panel: Sodium 141 mmol/L (136-145) 06/20/23 12:15 Potassium 4.0 mmol/L (3.5-5.1) 06/20/23 12:15 Chloride 101 mmol/L (98-107) 06/20/23 12:15 Carbon Dioxide 32.5 mmol/L (21.0-32.0) H 06/20/23 12:15 BUN 29 mg/dL (7-18) H 06/20/23 12:15 Creatinine 1.1 mg/dL (0.55-1.02) H 06/20/23 12:15 Est GFR (CKD-EPI 2020) 49.86 (mL/min/1.73m2) 06/20/23 12:15 Calcium 10.1 mg/dL (8.5-10.1) 06/20/23 12:15 Glucose 97 mg/dL (74-106) 06/20/23 12:15 Liver Function Panel: No Data to Display Coagulation Panel: No Data to Display Cardiac Panel: No Data to Display Arterial Blood Gas: No Data to Display Venous Blood Gas: No Data to Display Pancreas Panel: No Data to Display Thyroid Panel: No Data to Display Infectious Disease: No Data to Display Blood Cultures: No Data to Display Toxicology Panel: No Data to Display Imaging and Studies Imaging and Studies Study information below may be from another EMR and interpreted by another provider. Please see original notes in EMR for more complete details. Stress Test Summary: Jan 2018 Impressions: Normal study after maximal exercise. Summary: 1. Myocardial perfusion imaging: No myocardial perfusion defects noted. 2. The calculated left ventricular ejection fraction after stress: 67%. LV global systolic function is normal. 3. Stress ECG conclusions: The stress ECG is negative. 4. Stress: The target heart rate was achieved. The heart rate response to stress is normal. There is a normal resting blood pressure with an appropriate response to stress. The patient experienced no chest pain during stress. Exercise capacity is good (10 METS). Echocardiogram Summary: jan 2018 Summary: 1. Left ventricle: The cavity size was normal. Wall thickness was normal. Systolic function was normal. The estimated ejection fraction was 55-60%. Wall motion was normal; there were no regional wall motion abnormalities. 2. Right ventricle: The cavity size was normal. Systolic function was normal. 3. Mitral valve: There was mild regurgitation. 4. Tricuspid valve: There was moderate-severe regurgitation. 5. Inferior vena cava: The vessel was normal in size. The respirophasic diameter changes were in the normal range (greater than or equal to 50%), consistent with normal central venous pressure. Other Study Summary:: c spine CT reviewed and results in chart Anesthesia Assessment and Plan Anesthesia History Personal History: No History of Anesthesia Complications Family History: No Family History of Anesthesia Complications Exercise Tolerance Exercise Tolerance: Metabolic Equivalents<4 Pertinent Negatives Pertinent Negatives: No Symptoms of GERD, No Major Cardiovascular Symptoms or Complaints, No Major Pulmonary Symptoms or Complaints and No History of CVA/TIA Cardiac & Pulmonary Exam Cardiac Exam: Normal S1/S2 Heart Sounds Pulmonary Exam: Clear Bilateral Breath Sounds Implantable Cardiac Device Does patient have a Pacemaker or an ICD?: No Airway Exam Known Difficult Airway: No Mallampati Class: 3 Mouth Opening: Normal (> 3cm) Thyromental Distance: Greater than 3 cm Neck Range of Motion: Full ROM Neck Circumference: Normal Teeth Condition: Normal Dentition ASA Classification ASA Score: ASA 2 Emergency Case?: No NPO Status NPO Status: NPO Clears >2 hours, Solids >8 hours Anesthesia Plan Resuscitation Status: Full Code Anesthesia Technique: Spinal Anesthesia Airway Planned: Natural Airway Monitors Used: Standard Monitors
[2023-07-01] MEDS: ceFAZolin 2 GM/50 ML BAG IVPB (10:10)
--- NOTE | 2023-07-01 12:17 | ROE_ITS ---
Date of service: 07/01/23 Time of Service: 10:30 Operative Note Operative Note DATE OF PROCEDURE: 07/01/23 PRE-OP DIAGNOSIS: Right Hip Osteoarthritis POST-OP DIAGNOSIS: same PROCEDURE: Right Anterior Total Hip Arthroplasty with Intraoperative Navigation SURGEON: Yonatan Thomas ASBESTOS WIRE FINISHER: Silviano Trejo ANESTHESIA TYPE: Spinal Refer to Anesthesia Record ESTIMATED BLOOD LOSS: 100 PATHOLOGY: none sent TOURNIQUET TIME: 0 COMPLICATIONS: None Patient was transported to: PACU Patient's condition: stable Implants: 1. Depuy [place] Acetabular Component, 52mm 2. Depuy Acetabular Liner, [id number] 3. Depuy Corail Short Neck Collared Femoral Stem, Size 12 4. Depuy Altrx Ceramic Femoral Head, Size 36+8.5mm Indications: I have seen Aixa in clinic for symptoms of hip arthritis, confirmed with radiographic findings. She has exhausted nonoperative methods and was having significant limitations in daily function and desired better function and less pain. I discussed the technical details of a hip replacement. I explained the risks of the procedure to include, but not limited to, bleeding, infection, pain, stiffness, fracture, damage to nerves and vessels, damage to muscles and tendons, loosening, instability, leg length inequality, need for repeat procedure, blood clot and cardiopulmonary demise. Despite these risks, Aixa elected to proceed. Findings: There was significant signs of arthritis throughout the hip along with significant synovitis. Procedure Description: Aixa was greeted in the preoperative holding area where the correct side was identified and marked. The consent was reviewed with the patient and signed. The history and physical was updated. All questions were answered. SHe was taken back to the operating room. A spinal anesthestic was then administered. The feet were wrapped with cast padding and Coban and then placed into the boot liners and then into the boots. Care was taken to protect the skin and make sure the heels were fully down and the boots were stable. The patient was then positioned onto the HANA table. Both legs were held in a neutral position. SCDs were applied. The patient was then slid down onto a peroneal post. Prophylactic antibiotics in the form of Cefazolin were administered. 1g of Tranxemic Acid was given intravenously within 30 minutes of incision. The right leg was then prepped with Chloraprep and draped in a standard fashion. A second prep with Chloraprep was performed prior to placement of a shower-curtain type drape with Iodine impregnated skin protection. A timeout to confirm correct identity, side and site, procedure, allergies, anesthesia, and medical concerns was performed. An obliquely oriented incision was made starting lateral to the ASIS and running distal over the Tensor Fascia Moriah (TFL) muscle belly toward the fibular head, approximately 10cm. The skin and soft tissue was dissected sharply, through Cielo?s fascia, and to the fascia of the TFL. With the fascia and superior border of the IT band identified, the fascia was incised with a new knife just above any perforators from the IT band. The TFL muscle belly was bluntly dissected away from the fascia and moved laterally. The fat between TFL and rectus was identified to ensure the dissection was not within the TFL. Blunt dissection created space between abductors and the capsule and retractor was placed over the lateral femoral neck. The fibers of the rectus femoris tendon were identified and these were freed from the anterior capsule. A second cobra retractor was placed around the medial femoral neck. The TFL was further retracted laterally to show the deep fascia. Careful dissection through this layer identified three main crossing vessels of the lateral femoral circumflex. These were cauterized in multiple locations and then cut without any noticeable bleeding. The TFL was further released bluntly from the deep fascia to expose anterior hip capsule and fat The Mal orthopaedic retractor was then placed beneath the TFL and against sartorius and medial soft tissues to protect and retract the soft tissues. A T-capsulotomy was then performed starting at the superior lateral acetabulum and moving distally to the intertrochanteric ridge. These capsular flaps were tagged with a No. 1 Ethibond and elevated from within. The capsular flaps were released to the shoulder of the lateral neck and to the lesser trochanter to give excellent visualization of the proximal femur. A neck osteotomy was performed using an oscillating saw based on preoperative te mplates. This cut started in the shoulder and of the lateral neck and exited medially. The saw was at all times directed medially to avoid injury to the greater trochanter. Gross traction was applied to the leg and the osteotomy opened. The femoral head was removed with a corkscrew, making sure to protect the TFL on its exit. Traction was released after head removal. This was measured on the back table to determine the starting reamer size. Portions of the rectus obscuring visualization were minimally elevated off the superior acetabulum. An anterior retractor was placed over the anterior wall between capsule and labrum and attached to the Gripper retraction system. The femur was rotated to 90 degrees and medial capsule was fully released until the lesser trochanter was palpable and visible; the femur was returned to 30 degrees. A posterior retractor was placed similarly between capsule and labrum. This provided excellent visualization. The contents of the cotyloid fossa were removed with electrocautery and the labrum was removed with a knife. There was a notable floor osteophyte. There was significant chondromalacia of the superior acetabulum. Acetabular reaming began with a 46mm reamer. This first reaming was directed anterior to posterior and medial to get down to the true floor. This was inspected and reamed until the true floor was reached. The anterior retractor was then released and entry and exit was provided by traction on the capsular flaps. I then reamed sequentially up to a 52mm reamer where good fit was obtained. The larger reamers were oriented based on anatomical reference of the anterior and lateral brand to ensure proper abduction and anteversion. Positioning and size was confirmed with the fluoroscopy. A 52mm Depuy [place] acetabular component was selected. The acetabulum was reamed around the periphery with the selected acetabular size to prevent a rim fit. The deep tissues were irrigated. The acetabular component was then impacted in a position of about 40-45 degrees of abduction and 15-20 degrees of anteversion, using the patient?s anatomy as the ultimate landmark. Fluoroscopy was used to confirm this. There was excellent planner internship of the acetabular component and the inserting handle was removed. The acetabular liner, Depuy [id number] polyethylene liner, was inserted and lined up with the tines of the acetabular component. There was no soft tissue interposition. The liner was then impacted into position and confirmed to be well-seated. A portion of the jessica-articular cocktail was then injected around the acetabulum into the capsule and periosteum. This cocktail consisted of 123mg of Ropivacaine, 0.25mg of Epinephrine, 0.04mg of Clonidine, and 15mg of Ketorolac, diluted to 50cc. The leg was rotated to 120 degrees. Any remaining medial capsule was released until the lesser trochanter was easily palpable. A retractor was placed medially. The lateral capsule was further released into the shoulder to allow access to the greater trochanter. A Jensen retractor was placed over the greater trochanter which allowed the trochanter to flip in front of the capsule for excellent exposure. The leg was brought down into maximal extension and 20 degrees of adduction while ensuring there was no impingement on the acetabulum. Any remnant capsule within the trochanter was released. Piriformis and ob turator externis were identified and protected. There was excellent access to the proximal femur. The lateral neck remnant was removed with a rongeur. A blunt canal probe was used to identify the canal and trajectory for later broaching. A box osteotome initiated the broach course. A small curved rasp and a curved curette were used to work laterally. Broaching then began with a size 8 Corail broach. This was inserted manually around the trochanter and into the canal before mallet blows. The broach was seated to a few millimeters below the cut level based on the neck cut and the preoperative template. Sequential broaching was continued with the Enjoyorse pneumatic broaching device until a tight fit was obtained with good rotational control of the femur. A trial short neck was inserted along with a +5 trial head. The leg was brought out of extension and adduction and then reduced with traction and internal rotation. The leg was stable anteriorly in a position of 30 degrees of extension and 90 degrees of external rotation. Fluoroscopy was used to ensure there was no fracture and the stem was seated well. Leg lengths were checked with an AP pelvis and pelvic reference points. [place] Seven navigation system was used to confirm appropriate positioning and leg length and offset. Once content with the desired offset and leg lengths, the leg was brought back into extension, external rotation and adduction. The periosteum and surrounding tissue was injected with remaining portion of the jessica-articular cocktail. The proximal femur was irrigated as well as the deep tissues. The Depuy Corail short neck collared stem, size 12, was then manually inserted into the proximal femur making sure to control rotation. It was then malleted into position with light blows, giving breaks to allow bone expansion and decrease risk of fracture. The selected Depuy Altrx Ceramic Head, size 36+8.5mm, was then placed onto the clean and dry trunnion and secured with impaction onto the tapered fit. The leg was brought back out of extension and adduction and reduced with traction and internal rotation. Stability was confirmed with no shuck at 90 degrees of external rotation and 30 degrees of extension. No impingement through range of motion arc. Final x-ray images were obtained with fluoroscopy to confirm adequate positioning and no intraoperative fracture. The deep tissues were thoroughly irrigated with Surgiphor, betadine solution. This was allowed to sit in the wound for 3 minutes before being thoroughly irrigated out with normal saline. The capsule was then reapproximated with the previously placed Ethibond sutures. The TFL fascia was finally closed with a No. 2 Stratafix, barbed suture. Deep tissues were then reapproximated with 0 Vicryl and a running 2-0 Vicryl. The skin was closed with a running 4-0 Monocryl in a subcuticular fashion. This was reinforced with skin glue. A Mepilex silver dressing was applied. At the end of the case, all counts were correct. Aixa was transferred to the hospital bed without difficulty and suffering no apparent complication. Aixa has a good prognosis. Physical therapy will start today and without re strictions, weight-bearing as tolerated. Aspirin 81mg BID will be used for DVT prophylaxis.
--- NOTE | 2023-07-01 13:38 | W.ANESPOSTOP ---
Postoperative Evaluation Date, Time and Location Date Performed: 07/01/23 Time Performed: 13:02 Patient Location: Day Surgery Unit Vital Signs Most Recent Imported Vital Signs: Most Recent Vital Signs Temp Pulse Resp BP Pulse Ox 36.3 C L 57 L 16 139/74 98 07/01/23 12:45 07/01/23 12:45 07/01/23 12:45 07/01/23 12:45 07/01/23 12:45 Pain Score Most Recent Pain Score: Most Recent Pain Score Pain Level 0 07/01/23 12:45 Assessment Mental Status: Awake (Alert & Oriented to Patient Baseline) Airway and Respiratory Function: Patent airway with normal (patient baseline) respiratory exam Cardiovascular Function: Hemodynamically Stable Hydration Status: Adequately Hydrated Nausea & Vomiting: No Nausea or Vomiting Pain: Pt. Denies Any Pain Peripheral Nerve Block: Patient did not receive a nerve block
--- NOTE | 2023-07-01 13:43 | PT.INIE ---
PT Notes Visit Reasons: R THR Physical Therapy Day Surgery Initial Evaluation Date: 07/01/2023 Referring Doctor: Silviano Trejo NP PT Orders: PT CONSULT: S/P Ortho Surgery Precautions: WBAT on the R LE with AD. Patient Profile/Admitting Diagnosis: Aixa is an 83-year-old female with history of degenerative joint disease of the right hip and is status post right anterior total hip arthroplasty on postoperative day 0. PMHX: Medical History (Updated 06/17/23 @ 13:42 by Piper Malone MD) Lyme disease, unspecified (~11/2022) Splenic infarct seen on CT and CTA done for LUQ pain; resolved pain. 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 Thomas. 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 12/2018 evaluation at [facility] breast care center. Observation post radiation. Hypothyroidism Normal FT4. Asymptomatic. No rx needed Family hx-breast malignancy mother Vaginal irritation from pessary (11/08/16) Ring with support size decreased from #5 to #4 and on 04/23/21 65mm incontinence dish with support inserted. Osteoarthritis of cervical spine (08/05/17) Diverticula of colon (03/18/17) Recurrent basal cell carcinoma Surgical History S/P breast lumpectomy Social History/Home Situation: Will have assistance of her son at home as she recovers. Independent with all aspects of ADLs prior to surgery. Has 1 step to enter with a rail on both sides. Equipment Owned/DME: None Subjective: Reported 1/10 pain on the right hip at rest and with movement. Verbalized that she has not put her full weight on the right LE for a long time now, amazed at how much better she is bearing weight and walking. Denied headache, chest pain, and lightheadedness throughout session. Objective: General Observation: Mepilex Ag over surgical incision. TDS to be legs. Cold pack on right hip. Mental Status: A and O x 4 Pain: As above ROM: Right Lower Extremity: Hip flexion WFL. Hip abduction WFL. Knee flexion WFL. Ankle dorsiflexion WFL. Ankle plantarflexion WFL. Left Lower Extremity: Hip flexion WFL. Hip abduction WFL. Knee flexion WFL. Ankle dorsiflexion WFL. Ankle plantarflexion WFL. Strength: Right Lower Extremity: Hip flexors 4-/5. Hip abductors 4-/5. Knee flexors 5/5. Knee extensors 4-/5. Ankle dorsiflexors 5/5. Ankle plantarflexors 5/5. Left Lower Extremity:Hip flexors 5/5. Hip abductors 5/5. Knee flexors 5/5. Knee extensors 5/5. Ankle dorsiflexors 5/5. Ankle plantarflexors 5/5. Sensation: Intact as to pain and light pressure in B LE Bed Mobility/Transfers: Minimal cueing provided for use of B hands as needed for support, movement sequence, AD management, and posture to reduce fall risk and minimize pain report Supine to sit standby assist Sit to stand standby assist Stand to sit standby assist Bed to chair standby assist Gait: Facilitated safe and correct performance of level surface ambulation covering a distance of 150 feet using front wheeled walker with a heel-toe reciprocal swing through gait pattern requiring minimal verbal cueing for limb advancement, AD management, and posture to reduce fall risk and minimize pain level. Stairs: Guided patient with safe and correct negotiation of 3 x 4 inch steps and 2 x 6 inch steps holding onto bilateral rails with step to gait pattern requiring minimal verbal cueing for movement sequence, posture, and increased hip and knee flexion on the right during each ascent to reduce fall risk and minimize pain level. Balance: Static Sitting: Normal Dynamic Sitting: Normal Static Standing: Fair Dynamic Standing: Fair Special Tests: Mobility Limitations Standardized Measure [facility] 6 clicks Basic Mobility Inpatient Short Form: Raw Score: 24 CMS Score: 0% deficit Informed Consent/Education: Patient instructed in purpose of PT consult. Packet containing LYNDA exercise protocol has been given to patient. Education and training on initial set of exercises that can be done at home have been completed with patient. Trained patient with correct performance of exercises below to maximize motor control, joint flexibility, soft tissue extensibility of the R hip musculature to facilitate return to independent functional mobility performance. Access Code: [email or web address] URL: [email or web address] Date: 07/01/2023 Prepared by: Tabatha Carmona Exercises - Gluteal Sets - 1 x daily - 7 x weekly - 1 sets - 10 reps - 5 hold - Supine Heel Slide - 1 x daily - 7 x weekly - 1 sets - 10 reps - 5 hold - Supine Ankle Pumps - 1 x daily - 7 x weekly - 1 sets - 10 reps - 5 hold - Seated March - 1 x daily - 7 x weekly - 1 sets - 10 reps - 5 hold - Seated Long Arc Quad - 1 x daily - 7 x weekly - 1 sets - 10 reps - 5 hold Assessment: Patient will close use of a front wheeled walker for all mobility ADL performance to maximize independence and reduce fall risk. Patient presents with clinical signs and symptoms consistent with current/admitting diagnoses that have resulted to mobility limitations, gait instability, generalized weakness, and impairment of motor control as demonstrated by the following impairment level findings: 1. Decreased strength to R hip major muscle groups 2. Impaired standing balance Impairments are contributing to the following functional limitations: 1. Inability to safely ambulate without assistive device 2. Increase completion time for mobility ADL performance 3. Increased fall risk Patient is assessed as a 05139 moderate complexity based on the following: History: 83-year-old evolving partially bandsfemale with impairment level findings, functional limitations, and past medical history as indicated above Examination: Demonstrable impairment in strength, balance, and mobility level with underlying impairments and functional limitations as documented above Presentation: Evolving Decision Makin moderate complexity Goals: N/A. PT evaluation and 1-2 treatment sessions only for functional mobility training using recommended AD and for HEP instruction. Plan of Care/Treatment Plan: N/A. PT evaluation and 1-2 treatment session only for functional mobility training using recommended AD and for HEP instruction. DISCHARGE RECOMMENDATIONS: Home when medically cleared by orthopedic surgeon. Recommend outpatient PT services in order to optimize functional mobility outcomes and facilitate return to independent community ambulation without an assistive device. TREATMENT CODE/TIME: 9716 2 x 20 minutes for 1 unit, 9753 0 x 17 minutes for 1 unit (13:43-14:20) Thank you for the opportunity to participate in the care of this patient. Please sign an return this page within 30 days if you agree with the above POC. Thank you! Physician Signature Date [facility] Thank you for the opportunity to participate in the care of this patient. Tabatha Carmona PT, DPT, CLT [facility] [place], [place] Yet
== END 2023-07-01 15:05 | disposition home or self-care (01) ==
PROVIDERS: PCP Family Medicine; Visit Provider Student in an Organized Health Care Education/Training Program
PROC: (CPT 27130; principal; 2023-07-01 11:00)
DX: M16.11 Unilateral primary osteoarthritis, right hip (principal); I10 Essential (primary) hypertension; E78.5 Hyperlipidemia, unspecified; I48.91 Unspecified atrial fibrillation
CPT/HCPCS: 20985; 27130; C1776; 73501; J0690; J1100; J2001; J2250; J2371; J2401; J2405; J2704

== ENCOUNTER 2023-07-14 15:22 | Outpatient (CLI) | payer MEDICARE, BC, SELFPAY ==
--- NOTE | 2023-07-14 10:00 | DI.RAD_ITS ---
Exam(s) XR HIP RT COMPLETE AP PELVIS EXAM: XR HIP RT COMPLETE AP PELVIS CLINICAL HISTORY: 1ST POST OP S/P R LYNDA. TECHNIQUE: 2D digital imaging was performed. Three images were obtained. AP pelvis and lateral righ t hip views were obtained. COMPARISON: CR XR HIP RT COMPLETE AP PELVIS from 04/22/2022 CR XR PELVIS AP from 06/05/2023 XA XR HIP RT IN OR from 07/01/2023 FINDINGS: BONES: There are stable post operative changes of a right total hip replacement present. No fracture or dislocation. There is some deformity seen on the lateral view of the proximal femur, but this may be due to position. If there is concern for fracture a CT scan should be considered for further lisseth luation. JOINTS: The orthopedic hardware is in good position. No evidence of hardware loosening. SOFT TISSUE: Normal. IMPRESSION: Stable right total hip replacement. Please see the above discussion for complete details. DATA REPOSITORY: RADIATION DOSE DELIVERED:
== END 2023-07-14 15:23 | disposition home or self-care (01) ==
LOC: DIORS 15:23
PROVIDERS: PCP Family Medicine; Referring Provider Family Medicine; Visit Provider Student in an Organized Health Care Education/Training Program
DX: Z96.641 Presence of right artificial hip joint (principal); Z47.1 Aftercare following joint replacement surgery; M97.8XXA Periprosthetic fracture around other internal prosthetic joint, initial encounter
CPT/HCPCS: 73502

== ENCOUNTER 2023-07-28 16:00 | Outpatient (CLI) | payer MEDICARE, BC, SELFPAY ==
--- NOTE | 2023-07-28 14:15 | DI.RAD_ITS ---
Exam(s) XR HIP RT AP LAT ONLY EXAM: XR HIP RT AP LAT ONLY INDICATION: PERIPROSTHETIC HIP FX S/P LYNDA. COMPARISON: CR XR HIP RT COMPLETE AP PELVIS from 07/14/2023 TECHNIQUE: 2D digital imaging was performed. Two views. FINDINGS: There has been no change in the right hip prosthesis. No abnormal surrounding bony lucencies. DATA REPOSITORY: RADIATION DOSE DELIVERED:
== END 2023-07-28 16:01 | disposition home or self-care (01) ==
LOC: DIORS 16:00
PROVIDERS: PCP Family Medicine; Visit Provider Student in an Organized Health Care Education/Training Program
DX: Z96.641 Presence of right artificial hip joint; Z47.1 Aftercare following joint replacement surgery; M97.8XXD Periprosthetic fracture around other internal prosthetic joint, subsequent encounter
CPT/HCPCS: 73502

== ENCOUNTER 2023-08-01 07:27 | Day surgery (SDC) | payer MEDICARE, BC, SELFPAY ==
--- NOTE | 2023-07-30 08:23 | W.PREOPHP ---
Assessment and Plan Assessment and plan (1) Cortical age-related cataract, left eye: Status: Acute Assessment and plan: Assessment: Visually significant cataract of the left eye. Plan: Cataract extraction with lens implantation of the left eye. (2) Nuclear age-related cataract, left eye: Status: Acute Assessment and plan: Assessment: Visually significant cataract of the left eye. Plan: Cataract extraction with lens implantation of the left eye. (3) Posterior subcapsular age-related cataract of left eye: Status: Acute Assessment and plan: Assessment: Visually significant cataract of the left eye. Plan: Cataract extraction with lens implantation of the left eye. History of Present Illness History of Present Illness Chief Complaint: Decreased vision both eyes Narrative: Patient is an 82-year-old lady with history of progressive decreased vision in both eyes at both distance and near. She notes significant difficulty reading fine print and has severe trouble with glare at night. On examination she was noted to have significant bilateral nuclear/cortical cataracts. The option of cataract surgery was offered to the patient and she felt she was symptomatic and of that she wished to proceed. Previously scheduled cataract surgery was delayed due to hip surgery. Review of Systems All systems reviewed & are unremarkable except as noted in HPI and below PFSH All Active Problems Periprosthetic fracture of femur following total replacement of hip (Acute) Posterior subcapsular age-related cataract of left eye (Acute) Cortical age-related cataract, left eye (Acute) Nuclear age-related cataract, left eye (Acute) Cystocele (Chronic 07/05/16) Pessary in place. Essential hypertension (Chronic 01/13/13) Osteoporosis (Chronic) Atrial fibrillation (Chronic) Paroxysmal. Some EKG changes. Hyperlipidemia (Acute) Pessary maintenance (Chronic) 04/2021. #4 ring with support replaced by 65mm incontinence dish with support. Chronic anticoagulation (Acute) with Eliquis Basal cell carcinoma, face (Acute ~12/2022) Superficial and nodular types, left cheek managed at [facility] dermatology Medical History Lyme disease, unspecified (~11/2022) Splenic infarct seen on CT and CTA done for LUQ pain; resolved pain. 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 Thomas. Ductal carcinoma in situ (DCIS) of left breast (~2019) 11/2018 microinvasive lobular breast carcinoma-low intermediate grade. 12/2018 evaluation at [facility] [place] [facility]. Observation post radiation. Hypothyroidism Normal FT4. Asymptomatic. No rx needed Family hx-breast malignancy mother Vaginal irritation from pessary (11/08/16) Ring with support size decreased from #5 to #4 and on 04/23/21 65mm incontinence dish with support inserted. Osteoarthritis of cervical spine (08/05/17) Diverticula of colon (03/18/17) Recurrent basal cell carcinoma Surgical History History of total right hip replacement (07/01/23) S/P breast lumpectomy Family History Mother Breast cancer Father Neoplasm Social History Smoking/Tobacco Use Status: Never Second Hand Exposure: No Smoking risk assessment performed?: Yes Alcohol Intake: current Alcohol Intake frequency: a few times a month Alcohol type: hard liquor Drug use: Never Substance use type: does not use Caregiver/Support person: No Household members: none Housing: house Communication Needs: None Do you need help understanding health information?: Never Pets and animals: No Sexually active: No Do you think of yourself as: straight/heterosexual Current gender identity: female What is your relationship status?: How often do you talk on the phone with friends or family?: three or more times per week How often do you get together with friends or relatives?: twice per week How often do you attend confucianist or holiness services?: 4 or more times per year Do you belong to any clubs or organized social groups?: yes Panel score (0-1 are the most socially isolated patients): 3 What type of physical activity do you participate in: bicycling, other Details: Pilates,stretching,sking and running Duration: > 90 minutes/day Frequency: daily Kasia/Denominational: Hoahaoism Special kasia needs: No Seatbelt use: always Helmet use: Yes Drive intox or ride w/intox taxi cab driver: No Do you feel safe at home: Yes (lives alone) Do you feel safe in your relationship?: Yes Meds Allergies and Home Medications Allergies Allergy/AdvReac Type Severity Reaction Status Date / Time lisinopril AdvReac Intermediate COUGH Verified 08/01/23 07:57 hydrochlorothiazide AdvReac Mild dizziness Verified 08/01/23 07:57 Home Medications Medication Instructions Recorded Confirmed Type multivitamin 1 tab PO DAILY 04/24/22 08/01/23 History apixaban 5 mg tablet (Eliquis) 5 mg PO BID #180 tabs 03/10/23 08/01/23 Rx diltiazem HCl 180 mg 180 mg PO DAILY #90 caps 06/09/23 08/01/23 Rx capsule,extended release 24 hr (Cardizem CD) cholecalciferol (vitamin D3) 25 25 mcg PO DAILY 06/17/23 08/01/23 History mcg (1,000 unit) tablet (Vitamin D3) cyanocobalamin (vitamin B-12) 500 500 mcg PO DAILY 06/17/23 08/01/23 History mcg tablet (Vitamin B-12) acetaminophen 500 mg tablet 1,000 mg (2 x 500 mg) PO TID #90 07/01/23 08/01/23 Rx tabs Exam Eyes Other: Most recent ocular examination is significant for corrected visual acuity of 20/30 OD, 20/25 OS. Extraocular motility is normal. Intraocular pressure is 15 OD, 12 OS. Slit-lamp examination is significant for 2-3+ nuclear cataract with 1+ cortical cataract OU. Pupils dilate to 6 mm OU. The remainder of the anterior segment examination is unremarkable. Funduscopic examination shows disc cupping of 0.35 OU. The vessels, macula, peripheral retina and vitreous are normal OU. Resp Auscultation: clear to auscultation bilaterally Cardio Rate: regular rate Rhythm: regular rhythm
[2023-08-01 07:45] VITALS: BP 158/80; PULSE 68; RESP 16; TEMP 36.2; O2SAT 98
--- NOTE | 2023-08-01 07:57 | ANES.PREOP_ITS ---
General Info Date of Service Date Performed: 08/01/23 Height: 5 ft 7 in Weight: 60 kg Body Mass Index (BMI): 20.7 Surgical Procedure: Operation Date: 08/01/23 09:40 Proposed Procedure Side Surgeon p Cataract Extraction with IOL Implant Left Negro Mustafa MD Meds Allergies and Home Medications Allergies Allergy/AdvReac Type Severity Reaction Status Date / Time lisinopril AdvReac Intermediate COUGH Verified 08/01/23 07:57 hydrochlorothiazide AdvReac Mild dizziness Verified 08/01/23 07:57 Home Medication Medication Instructions Recorded multivitamin 1 tab PO DAILY 04/24/22 apixaban 5 mg tablet (Eliquis) 5 mg PO BID #180 tabs 03/10/23 diltiazem HCl 180 mg 180 mg PO DAILY #90 caps 06/09/23 capsule,extended release 24 hr (Cardizem CD) cholecalciferol (vitamin D3) 25 25 mcg PO DAILY 06/17/23 mcg (1,000 unit) tablet (Vitamin D3) cyanocobalamin (vitamin B-12) 500 500 mcg PO DAILY 06/17/23 mcg tablet (Vitamin B-12) acetaminophen 500 mg tablet 1,000 mg (2 x 500 mg) PO TID #90 07/01/23 tabs Current Visit Medications: Current Medications Generic Name Dose Route Start Last Admin Trade Name Freq PRN Reason Stop Dose Admin Acetaminophen 1,000 mg 08/01/23 06:00 Acetaminophen 500 Mg Tab PO 08/31/23 05:59 Q4H PRN PRN Balanced Salt Solution 500 ml 08/01/23 06:00 Balanced Salt Soln.-Plus 500 Ml Bag OP 08/31/23 05:59 DIRECTED KARSON Miscellaneous Medication 0 ml 08/01/23 06:00 Prednisolone 1%, Moxifloxacin 0.5%, Bromfenac 0.09% 5ml Btl OS 08/31/23 05:59 DIRECTED KARSON Miscellaneous Medication 0 ml 08/01/23 06:00 08/01/23 07:53 Tropicam./Phenyleph. (1/2.5%) 10 Ml Btl OS 08/31/23 05:59 1 drp DIRECTED KARSON Administration Tetracaine HCl 0 ml 08/01/23 06:00 Tetracaine 0.5% 4 Ml Btl OS 08/31/23 05:59 DIRECTED KARSON PFSH Active Problems Active Problems: Problem Status Onset Code Periprosthetic fracture of femur following total replacement of hip M97.8XXA, Z96.649 Posterior subcapsular age-related cataract of left eye H25.042 Cortical age-related cataract, left eye H25.012 Nuclear age-related cataract, left eye H25.12 Cystocele 07/05/16 Essential hypertension 01/13/13 I10 Osteoporosis M81.0 Atrial fibrillation I48.91 Hyperlipidemia E78.5 Pessary maintenance Z46.89 Chronic anticoagulation Z79.01 Basal cell carcinoma, face ~12/2022 C44.310 Medical History Medical History Lyme disease, unspecified (~11/2022) Splenic infarct seen on CT and CTA done for LUQ pain; resolved pain. 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 Thomas. 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 12/[address] [facility] breast care center. Observation post radiation. Hypothyroidism Normal FT4. Asymptomatic. No rx needed Family hx-breast malignancy mother Vaginal irritation from pessary (11/08/16) Ring with support size decreased from #5 to #4 and on 04/23/21 65mm incontinence dish with support inserted. Osteoarthritis of cervical spine (08/05/17) Diverticula of colon (03/18/17) Recurrent basal cell carcinoma Surgical History Surgical History History of total right hip replacement (07/01/23) S/P breast lumpectomy Tobacco Smoking/Tobacco Use Status: Never Passive smoking exposure: Yes Second hand exposure: No Alcohol Alcohol Intake: current Alcohol intake frequency: a few times a month Alcohol type: hard liquor Substance Use Substance use: Never Substance use type: does not use Vital Signs and Lab Results Vital Signs Most Recent Vital Signs in EMR: Most Recent Vital Signs Temp Pulse Resp BP Pulse Ox 36.2 C L 68 16 158/80 H 98 08/01/23 07:45 08/01/23 07:45 08/01/23 07:45 08/01/23 07:45 08/01/23 07:45 Lab Results Blood Type / Crossmatch: No Data to Display Complete Blood Count: No Data to Display Complete Metabolic Panel: No Data to Display Liver Function Panel: No Data to Display Coagulation Panel: No Data to Display Cardiac Panel: No Data to Display Arterial Blood Gas: No Data to Display Venous Blood Gas: No Data to Display Pancreas Panel: No Data to Display Thyroid Panel: No Data to Display Infectious Disease: No Data to Display Blood Cultures: No Data to Display Toxicology Panel: No Data to Display Imaging and Studies Imaging and Studies Study information below may be from another EMR and interpreted by another provider. Please see original notes in EMR for more complete details. Stress Test Summary: Jan 2018 Impressions: Normal study after maximal exercise. Summary: 1. Myocardial perfusion imaging: No myocardial perfusion defects noted. 2. The calculated left ventricular ejection fraction after stress: 67%. LV global systolic function is normal. 3. Stress ECG conclusions: The stress ECG is negative. 4. Stress: The target heart rate was achieved. The heart rate response to stress is normal. There is a normal resting blood pressure with an appropriate response to stress. The patient experienced no chest pain during stress. Exercise capacity is good (10 METS). Echocardiogram Summary: jan 2018 Summary: 1. Left ventricle: The cavity size was normal. Wall thickness was normal. Systolic function was normal. The estimated ejection fraction was 55-60%. Wall motion was normal; there were no regional wall motion abnormalities. 2. Right ventricle: The cavity size was normal. Systolic function was normal. 3. Mitral valve: There was mild regurgitation. 4. Tricuspid valve: There was moderate-severe regurgitation. 5. Inferior vena cava: The vessel was normal in size. The respirophasic diameter changes were in the normal range (greater than or equal to 50%), consistent with normal central venous pressure. Other Study Summary:: c spine CT reviewed and results in chart Anesthesia Assessment and Plan Anesthesia History Personal History: No History of Anesthesia Complications Family History: No Family History of Anesthesia Complications Exercise Tolerance Exercise Tolerance: Metabolic Equivalents<4 Pertinent Negatives Pertinent Negatives: No Symptoms of GERD Cardiac & Pulmonary Exam Cardiac Exam: Normal S1/S2 Heart Sounds (afib) Pulmonary Exam: Clear Bilateral Breath Sounds Implantable Cardiac Device Does patient have a Pacemaker or an ICD?: No Airway Exam Known Difficult Airway: No Mallampati Class: 3 Mouth Opening: Normal (> 3cm) Thyromental Distance: Greater than 3 cm Neck Range of Motion: Full ROM Neck Circumference: Normal Teeth Condition: Normal Dentition ASA Classification ASA Score: ASA 2 Emergency Case?: No NPO Status NPO Status: NPO Clears >2 hours, Solids >8 hours Anesthesia Plan Resuscitation Status: Full Code Anesthesia Technique: MAC Anesthesia Airway Planned: Natural Airway Monitors Used: Standard Monitors
[2023-08-01 08:00] VITALS: BMI 20.7
[2023-08-01] MEDS: Duovisc Viscoelastic System EACH 1 EACH (09:14)
[2023-08-01] MEDS: Lidocaine 1% Pres-Free 5 ML VIAL (09:15)
[2023-08-01] MEDS: Povidone-Iodine Ophth 30 ML BTL (09:16)
[2023-08-01] MEDS: Balanced Salt Soln.-PLUS 500 ML BAG OP (09:17)
[2023-08-01] MEDS: Tetracaine 0.5% 4 ML BTL OS (09:18)
[2023-08-01 09:35] VITALS: BP 117/77; PULSE 64; RESP 18; TEMP 36.2; O2SAT 97
--- NOTE | 2023-08-01 09:36 | W.PM.DSUDISC ---
Date of service: 08/01/23 Time of Service: 09:36 Discharge Plan Disposition Patient Disposition: Home Discharge Details Attending Provider: Negro Mustafa Primary Care Provider: Piper Malone Home Meds and New Rx's Prescriptions: No Action multivitamin Tablet 1 tab PO DAILY cyanocobalamin (vitamin B-12) [Vitamin B-12] 500 mcg tablet 500 mcg PO DAILY cholecalciferol (vitamin D3) [Vitamin D3] 25 mcg (1,000 unit) tablet 25 mcg PO DAILY Eliquis 5 mg tablet 5 mg PO BID Qty: 180 3RF Hold Instructions: Changed by Provider diltiazem HCl [Cardizem CD] 180 mg capsule,extended release 24hr 180 mg PO DAILY Qty: 90 3RF acetaminophen 500 mg tablet 1,000 mg PO TID Qty: 90 3RF Discharge Instructions Stand Alone Forms: DSU Post-Op Cataract, Felicitas Alvarenga (DSU) Discharge Orders Discharge Orders: Discharge Order (Routine); Ordered 08/01/23 Ordered By: Negro Mustafa DS: Diagnosis Discharge Diagnosis (1) Cortical age-related cataract, left eye: Status: Resolved (2) Nuclear age-related cataract, left eye: Status: Resolved (3) Posterior subcapsular age-related cataract of left eye: Status: Resolved
--- NOTE | 2023-08-01 09:36 | W.PM.OP ---
Date of service: 08/01/23 Time of Service: 09:37 Operative Note Operative Note DATE OF PROCEDURE: 08/01/23 PRE-OP DIAGNOSIS: Nuclear/cortical/posterior subcapsular cataract, left eye POST-OP DIAGNOSIS: same PROCEDURE: Cataract extraction using phacoemulsification with intraocular lens implant, left eye SURGEON: Negro Mustafa ANESTHESIA TYPE: Local By Surgeon and MAC Refer to Anesthesia Record PATHOLOGY: none sent COMPLICATIONS: None Patient was transported to: same day Patient's condition: stable Implants: Christian Clareon [id number] Indications: Progressive decreased vision due to cataract, left eye Procedure Description: CATARACT SURGERY OPERATIVE REPORT PREOPERATIVE DIAGNOSIS: Nuclear/cortical/posterior subcapsular cataract, left eye POSTOPERATIVE DIAGNOSIS: Same OPERATION: Cataract extraction using phacoemulsification with posterior chamber intraocular lens implant, left eye. IOL: IOL Social Media Strategist/Model: Christian Clareon [id number] IOL Power: + 20.5 diopters IOL Serial Number: [id number] Optic Diameter: 6.0mm Haptic/Overall Diameter: 13.0mm PHACO INFO: Christian [employer] Vision System with OZil and Active Fluidics Cumulative Dispersed Energy (CDE): 10.56 seconds SURGEON: Negro Mustafa MD, LINDSEY ANESTHESIA: Monitored Anesthesia Care (MAC), with local sub-tenon's anesthetic infiltration COMPLICATIONS: None SPECIMENS: None INDICATIONS FOR PROCEDURE: The patient is an 83-year-old lady with history of diminished visual acuity in her left eye secondary to the development of nuclear/cortical/posterior subcapsular cataract. The option of cataract surgery was offered to the patient and she wished to proceed. See office notes for detailed information. PROCEDURE: The correct surgical eye was identified and marked as the left eye and the pupil was dilated in the preoperative area using mydriatics and cycloplegics. The dilated pupil size was 7.0 mm. Oral sedation was administered in the form of an Imprimis MKO Melt (midazolam 3mg/ketamine 25mg/ondansetron 2mg). The patient elected to proceed without oral sedation. The patient was brought to the operating room where cardiopulmonary monitoring was instituted and surgical time-out was performed, confirming the correct operative eye and IOL power. Topical anesthesia was administered and ophthalmic povidone-iodine 5% was instilled into the conjunctival fornices. The jessica-ocular area was prepped with Betadine 10% solution and draped in the usual sterile fashion for intraocular surgery, including an aperture drape. A Tegaderm transparent film dressing was cut in half and used to cover the lashes and lid margins. Care was taken to sequester the lashes and lid margins under the Tegaderm dressing. A lid speculum was placed between the lids of the operative eye and the Christian Lux[employer] Revalia operating microscope was maneuvered into position. Aurelia scissors were then used to make a conjunctival buttonhole approximately 6mm posterior to the limbus in the inferonasal quadrant. Blunt dissection was carried out to expose bare sclera, and a blunt-tipped sub-tenon?s anesthesia cannula was introduced and passed posteriorly along the globe where non-preserved plain lidocaine was injected into posterior sub-Tenon?s space. A sideport knife was used to make a paracentesis port. Intraocular phenylephrine/lidocaine was injected into the anterior chamber. The anterior chamber was then filled with viscoelastic. A keratome knife was used construct a two-plane clear corneal tunnel extending 2.0mm into clear cornea. A flap was raised on the anterior capsule and capsulorhexis forceps were used to complete a continuous curvilinear capsulorhexis of 5.5 mm. Balanced salt solution was then used to perform cortical cleaving hydrodissection and nuclear hydrodelineation until the lens could be freely rotated within the capsular bag. The lens nucleus was then disassembled and removed within the capsular bag and iris plane using phacoemulsification. Residual cortical material was removed using the irrigation/aspiration handpiece. The posterior capsule was carefully polished to remove as much residual lens epithelial cells as safely possible. The capsular bag was then inflated and the anterior chamber deepened with viscoelastic. The lens implant described above was inserted into the capsular bag using the Christian Autonome Injector. A Kuglen hook was used to dial the IOL into position. Residual viscoelastic was then removed first from posterior to the IOL, then from the anterior chamber using the I/A handpiece. The lens implant was noted to center nicely within the capsular bag. The incisions were stromally hydrated, and the anterior chamber was reformed using BSS. Then 0.5cc of moxifloxacin 1.0mg/ml were injected into the capsular bag and anterior chamber. The incisions were checked with a Weck spear and found to be secure. Several drops of ophthalmic povidone-iodine 5% were then applied to the eye followed by two drops of combination steroid/NSAID/antibiotic solution. The drapes were removed and a clear plastic protective eye shield was placed over the eye. The patient was then returned to Same Day Surgery in stable condition.
--- NOTE | 2023-08-01 09:53 | W.ANESPOSTOP ---
Postoperative Evaluation Date, Time and Location Date Performed: 08/01/23 Time Performed: 09:54 Patient Location: Day Surgery Unit Vital Signs Most Recent Imported Vital Signs: Most Recent Vital Signs Temp Pulse Resp BP Pulse Ox 36.2 C L 64 18 117/77 97 08/01/23 09:35 08/01/23 09:35 08/01/23 09:35 08/01/23 09:35 08/01/23 09:35 Pain Score Most Recent Pain Score: Most Recent Pain Score Pain Level 0 08/01/23 09:35 Assessment Mental Status: Awake (Alert & Oriented to Patient Baseline) Airway and Respiratory Function: Patent airway with normal (patient baseline) respiratory exam Cardiovascular Function: Hemodynamically Stable Hydration Status: Adequately Hydrated Nausea & Vomiting: No Nausea or Vomiting Pain: Pt. Denies Any Pain Peripheral Nerve Block: Patient did not receive a nerve block
[2023-08-01 10:00] VITALS: BP 127/80; PULSE 66; RESP 16; TEMP 36.3; O2SAT 97
== END 2023-08-01 10:13 | disposition home or self-care (01) ==
LOC: SUR 07:27
PROVIDERS: PCP Family Medicine; Visit Provider Ophthalmology
PROC: (CPT 66984; principal; 2023-08-01 09:30)
DX: H25.042 Posterior subcapsular polar age-related cataract, left eye (principal); H25.12 Age-related nuclear cataract, left eye; H25.012 Cortical age-related cataract, left eye; I10 Essential (primary) hypertension
CPT/HCPCS: 66984; 00123; V2632; J2003

== ENCOUNTER 2023-08-18 15:56 | Outpatient (CLI) | payer MEDICARE, BC, SELFPAY ==
--- NOTE | 2023-08-18 13:00 | DI.RAD_ITS ---
Exam(s) XR HIP RT AP LAT ONLY EXAM: XR HIP RT AP LAT ONLY CLINICAL HISTORY: FEMUR FX S/P R LYNDA. TECHNIQUE: 2D digital imaging was performed. Two images were obtained. AP and lateral views were ob tained. COMPARISON: CR XR HIP RT AP LAT ONLY from 07/28/2023 FINDINGS: BONES: There are stable post operative changes of a right total hip replacement present. No fracture or dislocation. JOINTS: The orthopedic hardware is in good position. No evidence of hardware loosening. SOFT TISSUE: Normal. IMPRESSION: Stable right total hip replacement. DATA REPOSITORY: RADIATION DOSE DELIVERED:
== END 2023-08-18 15:57 | disposition home or self-care (01) ==
LOC: DIORS 15:56
PROVIDERS: PCP Family Medicine; Visit Provider Student in an Organized Health Care Education/Training Program
DX: Z47.1 Aftercare following joint replacement surgery (principal); M97.8XXD Periprosthetic fracture around other internal prosthetic joint, subsequent encounter; Z96.641 Presence of right artificial hip joint
CPT/HCPCS: 73502

== ENCOUNTER 2023-09-12 07:00 | Day surgery (SDC) | payer MEDICARE, BC, SELFPAY ==
--- NOTE | 2023-09-12 06:31 | HPE_ITS ---
Assessment and Plan Assessment and plan (1) Cortical age-related cataract, right eye: Status: Chronic Assessment and plan: Assessment: Visually significant cataract of the right eye. Plan: Cataract extraction with lens implantation of the right eye. (2) Nuclear age-related cataract, right eye: Status: Chronic Assessment and plan: Assessment: Visually significant cataract of the right eye. Plan: Cataract extraction with lens implantation of the right eye. History of Present Illness History of Present Illness Chief Complaint: Progressive decreased vision, right eye Narrative: Patient is an 82-year-old lady who originally presented with complaints of progressive decreased vision in both eyes at both distance and near. She notes significant difficulty with glare from headlights at night and reading road signs. She has difficulty reading fine print. On examination she was noted to have significant bilateral cataracts and underwent cataract surgery in the left eye on 08/01/2023. She is doing well postoperatively, and now presents for cataract surgery in the other eye. See previous preoperative clearance, which is now outdated. Review of Systems All systems reviewed & are unremarkable except as noted in HPI and below PFSH All Active Problems Cortical age-related cataract, right eye (Chronic) Nuclear age-related cataract, right eye (Chronic) Periprosthetic fracture of femur following total replacement of hip (Acute 08/01/23) Cystocele (Chronic 07/05/16) Pessary in place. Essential hypertension (Chronic 01/13/13) Osteoporosis (Chronic) Atrial fibrillation (Chronic) Paroxysmal. Some EKG changes. Hyperlipidemia (Acute) Pessary maintenance (Chronic) 04/2021. #4 ring with support replaced by 65mm incontinence dish with support. Chronic anticoagulation (Acute) with Eliquis Basal cell carcinoma, face (Acute ~12/2022) Superficial and nodular types, left cheek managed at [facility] dermatology Medical History Lyme disease, unspecified (~11/2022) Splenic infarct seen on CT and CTA done for LUQ pain; resolved pain. 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 Thomas. 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 12/2018 evaluation at [facility] [place] breast care center. Observation post radiation. Hypothyroidism Normal FT4. Asymptomatic. No rx needed Family hx-breast malignancy mother Vaginal irritation from pessary (11/08/16) Ring with support size decreased from #5 to #4 and on 04/23/21 65mm incontinence dish with support inserted. Osteoarthritis of cervical spine (08/05/17) Diverticula of colon (03/18/17) Recurrent basal cell carcinoma Surgical History History of total right hip replacement (07/01/23) S/P breast lumpectomy Family History Mother Breast cancer Father Neoplasm Social History Smoking/Tobacco Use Status: Never Second Hand Exposure: No Smoking risk assessment performed?: Yes Alcohol Intake: current Alcohol Intake frequency: a few times a month Alcohol type: hard liquor Drug use: Never Substance use type: does not use Caregiver/Support person: No Household members: none Housing: house Communication Needs: None Do you need help understanding health information?: Never Pets and animals: No Sexually active: No Do you think of yourself as: straight/heterosexual Current gender identity: female What is your relationship status?: How often do you talk on the phone with friends or family?: three or more times per week How often do you get together with friends or relatives?: twice per week How often do you attend holiness or restoration services?: 4 or more times per year Do you belong to any clubs or organized social groups?: yes Panel score (0-1 are the most socially isolated patients): 3 What type of physical activity do you participate in: bicycling, other Details: Pilates,stretching,sking and running Duration: > 90 minutes/day Frequency: daily Kasia/Sabianism: Muslim Special kasia needs: No Seatbelt use: always Helmet use: Yes Drive intox or ride w/intox local company flatbed truck driver: No Do you feel safe at home: Yes (lives alone) Do you feel safe in your relationship?: Yes Meds Allergies and Home Medications Allergies Allergy/AdvReac Type Severity Reaction Status Date / Time lisinopril AdvReac Intermediate COUGH Verified 09/12/23 07:34 hydrochlorothiazide AdvReac Mild dizziness Verified 09/12/23 07:34 Home Medications Medication Instructions Recorded Confirmed Type multivitamin 1 tab PO DAILY 04/24/22 09/12/23 History apixaban 5 mg tablet (Eliquis) 5 mg PO BID #180 tabs 03/10/23 09/12/23 Rx diltiazem HCl 180 mg 180 mg PO DAILY #90 caps 06/09/23 09/12/23 Rx capsule,extended release 24 hr (Cardizem CD) cholecalciferol (vitamin D3) 25 25 mcg PO DAILY 06/17/23 09/12/23 History mcg (1,000 unit) tablet (Vitamin D3) cyanocobalamin (vitamin B-12) 500 500 mcg PO DAILY 06/17/23 09/12/23 History mcg tablet (Vitamin B-12) Exam Eyes Other: Most recent ocular examination is significant for corrected visual acuity of 20/30 OD, 20/25 OS. Extract motility is normal. Intraocular pressure is 15 OD, 12 OS. Slit-lamp examination is significant for a 2-3+ nuclear with 1+ cortical and trace posterior subcapsular cataract in the right eye. In the left eye there is a well-positioned PCIOL with clear posterior capsule. Funduscopic examination reveals normal disc cupping with normal vessels, macula, peripheral retina and vitreous. Resp Auscultation: clear to auscultation bilaterally Cardio Rate: regular rate Rhythm: regular rhythm
[2023-09-12 07:25] VITALS: BP 143/79; PULSE 52; RESP 16; TEMP 36.4; O2SAT 100
--- NOTE | 2023-09-12 07:47 | ANES.PREOP_ITS ---
General Info Date of Service Date Performed: 09/12/23 Height: 5 ft 8 in Weight: 61.235 kg Body Mass Index (BMI): 20.5 Surgical Procedure: Operation Date: 09/12/23 08:40 Proposed Procedure Side Surgeon p Cataract Extraction with IOL Implant Right Negro Mustafa MD Meds Allergies and Home Medications Allergies Allergy/AdvReac Type Severity Reaction Status Date / Time lisinopril AdvReac Intermediate COUGH Verified 09/12/23 07:34 hydrochlorothiazide AdvReac Mild dizziness Verified 09/12/23 07:34 Home Medication Medication Instructions Recorded multivitamin 1 tab PO DAILY 04/24/22 apixaban 5 mg tablet (Eliquis) 5 mg PO BID #180 tabs 03/10/23 diltiazem HCl 180 mg 180 mg PO DAILY #90 caps 06/09/23 capsule,extended release 24 hr (Cardizem CD) cholecalciferol (vitamin D3) 25 25 mcg PO DAILY 06/17/23 mcg (1,000 unit) tablet (Vitamin D3) cyanocobalamin (vitamin B-12) 500 500 mcg PO DAILY 06/17/23 mcg tablet (Vitamin B-12) Current Visit Medications: Current Medications Generic Name Dose Route Start Last Admin Trade Name Freq PRN Reason Stop Dose Admin Acetaminophen 1,000 mg 09/12/23 06:00 Acetaminophen 500 Mg Tab PO 10/12/23 05:59 Q4H PRN PRN Balanced Salt Solution 500 ml 09/12/23 06:00 Balanced Salt Soln.-Plus 500 Ml Bag OP 10/12/23 05:59 DIRECTED KARSON Miscellaneous Medication 0 ml 09/12/23 06:00 Prednisolone 1%, Moxifloxacin 0.5%, Bromfenac 0.09% 5ml Btl OD 10/12/23 05:59 DIRECTED KARSON Miscellaneous Medication 0 ml 09/12/23 06:00 09/12/23 07:44 Tropicam./Phenyleph. (1/2.5%) 10 Ml Btl OD 10/12/23 05:59 1 drp DIRECTED KARSON Administration Tetracaine HCl 0 ml 09/12/23 06:00 Tetracaine 0.5% 4 Ml Btl OD 10/12/23 05:59 DIRECTED KARSON PFSH Active Problems Active Problems: Problem Status Onset Code Cortical age-related cataract, right eye H25.011 Nuclear age-related cataract, right eye H25.11 Periprosthetic fracture of femur following total replacement of hip 08/01/23 M97.8XXA, Z96.649 Posterior subcapsular age-related cataract of left eye H25.042 Cortical age-related cataract, left eye H25.012 Nuclear age-related cataract, left eye H25.12 Cystocele 07/05/16 Essential hypertension 01/13/13 I10 Osteoporosis M81.0 Atrial fibrillation I48.91 Hyperlipidemia E78.5 Pessary maintenance Z46.89 Chronic anticoagulation Z79.01 Basal cell carcinoma, face ~12/2022 C44.310 Medical History Medical History Lyme disease, unspecified (~11/2022) Splenic infarct seen on CT and CTA done for LUQ pain; resolved pain. 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 Thomas. 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 12/2018 evaluation at [facility] breast care center. Observation post radiation. Hypothyroidism Normal FT4. Asymptomatic. No rx needed Family hx-breast malignancy mother Vaginal irritation from pessary (11/08/16) Ring with support size decreased from #5 to #4 and on 04/23/21 65mm incontinence dish with support inserted. Osteoarthritis of cervical spine (08/05/17) Diverticula of colon (03/18/17) Recurrent basal cell carcinoma Surgical History Surgical History History of total right hip replacement (07/01/23) S/P breast lumpectomy Tobacco Smoking/Tobacco Use Status: Never Passive smoking exposure: Yes Second hand exposure: No Alcohol Alcohol Intake: current Alcohol intake frequency: a few times a month Alcohol type: hard liquor Substance Use Substance use: Never Substance use type: does not use Vital Signs and Lab Results Vital Signs Most Recent Vital Signs in EMR: Most Recent Vital Signs Temp Pulse Resp BP Pulse Ox 36.4 C L 52 L 16 143/79 H 100 09/12/23 07:25 09/12/23 07:25 09/12/23 07:25 09/12/23 07:25 09/12/23 07:25 Lab Results Blood Type / Crossmatch: No Data to Display Complete Blood Count: No Data to Display Complete Metabolic Panel: No Data to Display Liver Function Panel: No Data to Display Coagulation Panel: No Data to Display Cardiac Panel: 2 No Data to Display Arterial Blood Gas: No Data to Display Venous Blood Gas: No Data to Display Pancreas Panel: No Data to Display Thyroid Panel: No Data to Display Infectious Disease: No Data to Display Blood Cultures: No Data to Display Toxicology Panel: No Data to Display Imaging and Studies Imaging and Studies Study information below may be from another EMR and interpreted by another provider. Please see original notes in EMR for more complete details. Stress Test Summary: Jan 2018 Impressions: Normal study after maximal exercise. Summary: 1. Myocardial perfusion imaging: No myocardial perfusion defects noted. 2. The calculated left ventricular ejection fraction after stress: 67%. LV global systolic function is normal. 3. Stress ECG conclusions: The stress ECG is negative. 4. Stress: The target heart rate was achieved. The heart rate response to stress is normal. There is a normal resting blood pressure with an appropriate response to stress. The patient experienced no chest pain during stress. Exercise capacity is good (10 METS). Echocardiogram Summary: jan 2018 Summary: 1. Left ventricle: The cavity size was normal. Wall thickness was normal. Systolic function was normal. The estimated ejection fraction was 55-60%. Wall motion was normal; there were no regional wall motion abnormalities. 2. Right ventricle: The cavity size was normal. Systolic function was normal. 3. Mitral valve: There was mild regurgitation. 4. Tricuspid valve: There was moderate-severe regurgitation. 5. Inferior vena cava: The vessel was normal in size. The respirophasic diameter changes were in the normal range (greater than or equal to 50%), consistent with normal central venous pressure. Other Study Summary:: c spine CT reviewed and results in chart Anesthesia Assessment and Plan Anesthesia History Personal History: No History of Anesthesia Complications Family History: No Family History of Anesthesia Complications Exercise Tolerance Exercise Tolerance: Metabolic Equivalents<4 Pertinent Negatives Pertinent Negatives: No Symptoms of GERD and No Major Pulmonary Symptoms or Complaints Cardiac & Pulmonary Exam Cardiac Exam: Normal S1/S2 Heart Sounds Pulmonary Exam: Clear Bilateral Breath Sounds Implantable Cardiac Device Does patient have a Pacemaker or an ICD?: No Airway Exam Known Difficult Airway: No Mallampati Class: 3 Mouth Opening: Normal (> 3cm) Thyromental Distance: Greater than 3 cm Neck Range of Motion: Full ROM Neck Circumference: Normal Teeth Condition: Normal Dentition ASA Classification ASA Score: ASA 3 Emergency Case?: No NPO Status NPO Status: NPO Clears >2 hours, Solids >8 hours Anesthesia Plan Resuscitation Status: Full Code Anesthesia Technique: MAC Anesthesia Airway Planned: Natural Airway Monitors Used: Standard Monitors Preoperative Comments:: Patient requesting MKO, good experience last time.
[2023-09-12 07:50] VITALS: BMI 20.5
[2023-09-12] MEDS: Duovisc Viscoelastic System EACH 1 EACH (08:35)
[2023-09-12] MEDS: Balanced Salt Soln.-PLUS 500 ML BAG OP (08:35)
[2023-09-12] MEDS: Lidocaine 1% Pres-Free 5 ML VIAL (08:35)
[2023-09-12] MEDS: Tetracaine 0.5% 4 ML BTL OD (08:35)
[2023-09-12] MEDS: Povidone-Iodine Ophth 30 ML BTL (08:35)
[2023-09-12 08:53] VITALS: BP 123/81; PULSE 61; RESP 16; TEMP 36.3; O2SAT 96
--- NOTE | 2023-09-12 08:58 | ROE_ITS ---
Date of service: 09/12/23 Time of Service: 08:59 Operative Note Operative Note DATE OF PROCEDURE: 09/12/23 PRE-OP DIAGNOSIS: Nuclear/cortical cataract, right eye POST-OP DIAGNOSIS: same PROCEDURE: Cataract extraction using phacoemulsification with intraocular lens implant, right eye SURGEON: Negro Mustafa ANESTHESIA TYPE: Local By Surgeon and MAC Refer to Anesthesia Record ESTIMATED BLOOD LOSS: 0 PATHOLOGY: none sent COMPLICATIONS: None Patient was transported to: same day Patient's condition: stable Implants: Christian Clareon [id number] Indications: Progressive decreased vision due to cataract, right eye Procedure Description: CATARACT SURGERY OPERATIVE REPORT PREOPERATIVE DIAGNOSIS: Nuclear/cortical cataract, right eye POSTOPERATIVE DIAGNOSIS: Same OPERATION: Cataract extraction using phacoemulsification with posterior chamber intraocular lens implant, right eye. IOL: IOL School Superintendent/Model: Christian Clareon [id number] IOL Power: + 20.5 diopters IOL Serial Number: [id number] Optic Diameter: 6.0mm Haptic/Overall Diameter: 13.0mm PHACO INFO: ChristianSpaceFaceurion Vision System with OZil and Active Fluidics Cumulative Dispersed Energy (CDE): 11.78 seconds SURGEON: Negro Mustafa MD, LINDSEY ANESTHESIA: Monitored Anesthesia Care (MAC), with local sub-tenon's anesthetic infiltration COMPLICATIONS: None SPECIMENS: None INDICATIONS FOR PROCEDURE: The patient is a 83-year-old lady with history of diminished visual acuity in both eyes secondary to the development of bilateral nuclear/cortical cataract. She is significantly symptomatic that she desires cataract surgery and attempt to improve and maximize her vision. She has already undergone cataract surgery in the left eye approximately 6 weeks ago and is doing well postoperatively. She now presents for cataract surgery in the right eye. See office notes for detailed information. PROCEDURE: The correct surgical eye was identified and marked as the right eye and the pupil was dilated in the preoperative area using mydriatics and cycloplegics. The dilated pupil size was 7.0 mm. Oral sedation was administered in the form of an Imprimis MKO Melt (midazolam 3mg/ketamine 25mg/ondansetron 2mg). The patient was brought to the operating room where cardiopulmonary monitoring was instituted and surgical time-out was performed, confirming the correct operative eye and IOL power. Topical anesthesia was administered and ophthalmic povidone-iodine 5% was instilled into the conjunctival fornices. The jessica-ocular area was prepped with Betadine 10% solution and draped in the usual sterile fashion for intraocular surgery, including an aperture drape. A Tegaderm transparent film dressing was cut in half and used to cover the lashes and lid margins. Care was taken to sequester the lashes and lid margins under the Tegaderm dressing. A lid speculum was placed between the lids of the operative eye and the Christian LuxOR Revalia operating microscope was maneuvered into position. Aurelia scissors were then used to make a conjunctival buttonhole approximately 6mm posterior to the limbus in the inferonasal quadrant. Blunt dissection was carried out to expose bare sclera, and a blunt-tipped sub-tenon?s anesthesia cannula was introduced and passed posteriorly along the globe where non- preserved plain lidocaine was injected into posterior sub-Tenon?s space. A sideport knife was used to make a paracentesis port. Intraocular phenylephrine/lidocaine was injected into the anterior chamber. The anterior chamber was then filled with viscoelastic. A keratome knife was used to construct a two--plane clear corneal tunnel extending 2.0mm into clear cornea. A flap was raised on the anterior capsule and capsulorhexis forceps were used to complete a continuous curvilinear capsulorhexis of 5.5 mm. Balanced salt solution was then used to perform cortical cleaving hydrodissection and nuclear hydrodelineation until the lens could be freely rotated within the capsular bag. The lens nucleus was then disassembled and removed within the capsular bag and iris plane using phacoemulsification. Residual cortical material was removed using the I/A handpiece. The posterior capsule was carefully polished to remove as much residual lens epithelial cells as safely possible. The capsular bag was then inflated and the anterior chamber deepened with cohesive viscoelastic. The lens implant described above was inserted into the capsular bag using the Christian Autonome Injector. A Kuglen hook was used to dial the IOL into position. Residual viscoelastic was then removed first from posterior to the IOL, then from the anterior chamber using the I/A handpiece. The lens implant was noted to center nicely within the capsular bag. The incisions were stromally hydrated, and the anterior chamber was reformed using BSS. Then 0.5cc of moxifloxacin 1.0mg/ml were injected into the capsular bag and anterior chamber. The incisions were checked with a Weck spear and found to be secure. Several drops of ophthalmic povidone-iodine 5% were then applied to the eye followed by two drops of combination steroid/NSAID/antibiotic solution. The drapes were removed and a clear plastic protective eye shield was placed over the eye. The patient was then returned to Same Day Surgery in stable condition.
--- NOTE | 2023-09-12 08:58 | W.PM.DSUDISC ---
Date of service: 09/12/23 Time of Service: 08:58 Discharge Plan Disposition Patient Disposition: Home Discharge Details Attending Provider: Negro Mustafa Primary Care Provider: Piper Malone Home Meds and New Rx's Prescriptions: No Action multivitamin Tablet 1 tab PO DAILY cyanocobalamin (vitamin B-12) [Vitamin B-12] 500 mcg tablet 500 mcg PO DAILY cholecalciferol (vitamin D3) [Vitamin D3] 25 mcg (1,000 unit) tablet 25 mcg PO DAILY Eliquis 5 mg tablet 5 mg PO BID Qty: 180 3RF Hold Instructions: Changed by Provider diltiazem HCl [Cardizem CD] 180 mg capsule,extended release 24hr 180 mg PO DAILY Qty: 90 3RF Discharge Instructions Stand Alone Forms: DSU Post-Op CataractFelicitas (DSU) Discharge Orders Discharge Orders: Discharge Order (Routine); Ordered 09/12/23 Ordered By: Negro Mustafa DS: Diagnosis Discharge Diagnosis (1) Cortical age-related cataract, right eye: Status: Resolved (2) Nuclear age-related cataract, right eye: Status: Resolved
--- NOTE | 2023-09-12 09:14 | W.ANESPOSTOP ---
Postoperative Evaluation Date, Time and Location Date Performed: 09/12/23 Time Performed: 09:11 Patient Location: Day Surgery Unit Vital Signs Most Recent Imported Vital Signs: Most Recent Vital Signs Temp Pulse Resp BP Pulse Ox 36.3 C L 61 16 123/81 96 09/12/23 08:53 09/12/23 08:53 09/12/23 08:53 09/12/23 08:53 09/12/23 08:53 Pain Score Most Recent Pain Score: Most Recent Pain Score Pain Level 0 09/12/23 08:53 Assessment Mental Status: Arousable with meaningful communication Airway and Respiratory Function: Patent airway with normal (patient baseline) respiratory exam Cardiovascular Function: Hemodynamically Stable Hydration Status: Adequately Hydrated Nausea & Vomiting: No Nausea or Vomiting Pain: Pt. Denies Any Pain Peripheral Nerve Block: Other (Local by Dr. Mustafa)
[2023-09-12 09:20] VITALS: BP 122/75; PULSE 62; RESP 16; TEMP 36.5; O2SAT 95
== END 2023-09-12 09:33 | disposition home or self-care (01) ==
LOC: SUR 07:00
PROVIDERS: PCP Family Medicine; Visit Provider Ophthalmology
PROC: (CPT 66984; principal; 2023-09-12 08:30)
DX: H25.011 Cortical age-related cataract, right eye (principal); H25.11 Age-related nuclear cataract, right eye; I48.91 Unspecified atrial fibrillation
CPT/HCPCS: 66984; 00123; V2632; J2003

== ENCOUNTER 2023-09-30 15:18 | Outpatient (CLI) | payer MEDICARE, BC, SELFPAY ==
--- NOTE | 2023-09-30 13:45 | DI.RAD_ITS ---
Exam(s) XR HIP RT AP LAT ONLY EXAM: XR HIP RT AP LAT ONLY INDICATION: F/U PERIPROSTHETIC FX R HIP. COMPARISON: CR XR HIP RT AP LAT ONLY from 08/18/2023 TECHNIQUE: 2D digital imaging was performed. Two views. FINDINGS: There has been no change in the alignment of the right hip prosthesis. No abnormal surrounding bony lucencies. DATA REPOSITORY: RADIATION DOSE DELIVERED:
== END 2023-09-30 15:19 | disposition home or self-care (01) ==
LOC: DIORS 15:22
PROVIDERS: PCP Family Medicine; Referring Provider Family Medicine
DX: Z47.1 Aftercare following joint replacement surgery (principal); M97.8XXD Periprosthetic fracture around other internal prosthetic joint, subsequent encounter; Z96.641 Presence of right artificial hip joint
CPT/HCPCS: 73502

== ENCOUNTER 2023-12-01 02:25 | Outpatient (CLI) | payer MEDICARE, BC, SELFPAY ==
--- NOTE | 2023-12-01 07:00 | DI.DEXA_ITS ---
Exam(s) XR DEXA BONE DENSITY W/WO KELLE EXAM: XR DEXA BONE DENSITY W/WO KELLE CLINICAL HISTORY: h/o periprosthetic fracture,MENOPAUSAL DISORDER,N95.9 TECHNIQUE: COMPARISON: DX DEXA BONE DENSITY WITH KELLE from 07/03/2010 CR XR HIP RT AP LAT ONLY from 09/30/2023 FINDINGS: Lateral Spine Image: Unremarkable. No compression deformities identified. Left hip: Total T-Score: -2.5. This compares to -1.8 on the prior examination. Total Z-Score: -0.3 T- and Z-scores: There are consistent with osteoporosis. Lumbar Spine: Total T-Score: -2.7. This compares to -2.2 on the prior examination. Total Z-Score: 0.1 T- and Z-scores: Findings are consistent with osteoporosis. IMPRESSION: Findings of osteoporosis in the lumbar spine and left hip.
== END 2023-12-01 02:45 ==
LOC: DI 02:25
PROVIDERS: PCP Family Medicine; Visit Provider Family Medicine
DX: Z13.820 Encounter for screening for osteoporosis (principal); M85.89 Other specified disorders of bone density and structure, multiple sites
CPT/HCPCS: 77080

== ENCOUNTER 2023-12-08 03:38 | Outpatient (CLI) | payer MEDICARE, BC, SELFPAY ==
[2023-12-08 17:35] LABS: TSH (W/Ref FT4) 3.48 uIU/mL (0.36-3.74); Vitamin D 25 Total 39.5 ng/mL (30-100)
== END 2023-12-08 03:39 | disposition home or self-care (01) ==
LOC: LBO 03:38
PROVIDERS: PCP Family Medicine; Visit Provider Family Medicine
DX: M81.0 Age-related osteoporosis without current pathological fracture (principal)
CPT/HCPCS: 36415; 82306; 84443

== ENCOUNTER 2023-12-20 11:42 | Outpatient (CLI) | payer MEDICARE, BC, SELFPAY ==
--- NOTE | 2023-12-20 12:15 | DI.RAD_ITS ---
Exam(s) XR FOOT LT COMPLETE XR ANKLE LT COMPLETE EXAM: XR ANKLE LT COMPLETE and XR foot LT complete CLINICAL HISTORY: ankle and foot pain. r/o stress fracture TECHNIQUE: 2D digital imaging was performed of the left foot and ankle. Six images were obtained. AP, lateral and oblique views were obtained. COMPARISON: CR LEFT ANKLE 2 VIEW from 11/26/2013 FINDINGS: BONES: No acute fracture is present. No bony destructive lesion is seen. There is a small plantar jayson caneal spur. JOINTS:The ankle mortise is normally aligned. SOFT TISSUE: Normal. IMPRESSION: No acute fracture or dislocation is seen in the left ankle or left foot. DATA REPOSITORY: RADIATION DOSE DELIVERED:
--- NOTE | 2023-12-20 13:13 | DI.VRAD_ITS ---
PROCEDURE INFORMATION: Exam: XR Left Ankle Exam date and time: 12/20/2023 12:30 PM Age: 83 years old Clinical indication: Other: Ankle and foot pain. R/O stress fracture TECHNIQUE: Imaging protocol: Radiologic exam of the left ankle. Views: 3 or more views. COMPARISON: CR XR KNEE LT 3V AP,LAT,EUGENIE 12/31/2018 7:46 AM FINDINGS: Bones/joints: Ankle mortise joint is intact with no malleolar fracture. Soft tissues: Normal. No significant swelling. IMPRESSION: Normal ankle. Dictated and Authenticated by: Giovanny Truong MD. Ordering:SUNSHINE Monroy MD
--- NOTE | 2023-12-20 13:14 | DI.VRAD_ITS ---
PROCEDURE INFORMATION: Exam: XR Left Foot Exam date and time: 12/20/2023 12:32 PM Age: 83 years old Clinical indication: Other: C/O stress fracture TECHNIQUE: Imaging protocol: Radiologic exam of the left foot. Views: 3 or more views. COMPARISON: CR XR ANKLE LT COMPLETE 12/20/2023 12:30 PM FINDINGS: Bones/joints: No fracture or dislocation. No arthropathic change. Soft tissues: Normal. IMPRESSION: No acute findings. Dictated and Authenticated by: Giovanny Truong MD. Ordering:SUNSHINE Monroy MD
== END 2023-12-20 12:02 ==
PROVIDERS: PCP Family Medicine; Visit Provider Physician Assistant
DX: M25.572 Pain in left ankle and joints of left foot
CPT/HCPCS: 73610; 73630

== ENCOUNTER 2024-03-23 12:42 | Outpatient (REF) | payer MEDICARE, BC, SELFPAY | END 2024-03-23 12:43 | disposition home or self-care (01) | LOC: LBN 12:42 | PROVIDERS: PCP Family Medicine; Visit Provider Obstetrics & Gynecology Gynecology | DX: N89.8 Other specified noninflammatory disorders of vagina (principal); N81.11 Cystocele, midline; Z46.89 Encounter for fitting and adjustment of other specified devices | CPT/HCPCS: 87480; 87510; 87660 ==

== ENCOUNTER 2024-04-21 02:14 | Outpatient (CLI) | payer MEDICARE, BC, SELFPAY ==
--- NOTE | 2024-04-21 07:15 | DI.MAMMO_ITS ---
Exam(s) MG MAMMO SCREENING 60 MIN DUR EXAM: MG MAMMO SCREENING 60 MIN DUR CLINICAL HISTORY: breast cancer screening,PERSONAL H/O BREAST CA,D05.12 TECHNIQUE: Bilateral full field digital CC and MLO mammographic images were obtained with 3D tomosyn thesis and utilizing computer aided detection (CAD). COMPARISON: Available for comparison. FINDINGS: Masses/Architectural Distortion: There is stable findings of a left lumpectomy. No suspicious masses are seen. No new areas of architectural distortion are present. Microcalcifications: No suspicious pleomorphic-type are seen. Skin Thickening/Nipple Retraction: None. IMPRESSION: 1. No significant interval change with no specific features of malignancy noted. 2. Unless there is more urgent need, screening mammography is recommended, as per [employer] guidelines. BI-RADS Category 2 - Benign Findings Breast Density - Category B - Scattered areas of fibroglandular density Breast density category C or D implies that the patient has dense breast tissue. Dense breast tissue is very common and is not abnormal but dense breast tissue can make it harder to find cancer on a ma mmogram. Also, dense breast tissue may increase their breast cancer risk. This information about the result of the mammogram report was provided to the patient to raise their awareness. Use this report when you speak with the patient about their risks for breast cancer, which includes their family hist ory. At that time, you may recommend for more screening tests (Ultrasound or MRI) as they might be us eful based on their risk. A negative radiographic report should not delay biopsy if a dominant or clinically suspicious mass is present. Up to ten percent of cancers are not identified on mammography. A negative report may reinforce clinical impression. Adenosis and dense breasts may obscure an underlying neoplasm. False positive reports average 6 to 10%. Patient will receive a letter notifying them of these results.
== END 2024-04-21 02:34 ==
LOC: DI 02:14
PROVIDERS: PCP Family Medicine; Visit Provider Family Medicine
DX: D05.12 Intraductal carcinoma in situ of left breast (principal); Z12.31 Encounter for screening mammogram for malignant neoplasm of breast; R92.323 Mammographic fibroglandular density, bilateral breasts; D24.2 Benign neoplasm of left breast
CPT/HCPCS: 77063; 77067

== ENCOUNTER 2024-06-15 12:50 | Outpatient (CLI) | payer MEDICARE, BC, SELFPAY ==
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
== END 2024-06-15 13:10 ==
PROVIDERS: PCP Family Medicine; Visit Provider Nurse Practitioner Family
DX: R29.898 Other symptoms and signs involving the musculoskeletal system (principal)
CPT/HCPCS: 73030

== ENCOUNTER 2024-06-16 01:50 | Outpatient (CLI) | payer MEDICARE, BC, SELFPAY ==
--- NOTE | 2024-06-16 06:45 | DI.US_ITS ---
Exam(s) US LOWER EXTREMITY VENOUS LT EXAM: US LOWER EXTREMITY VENOUS LT CLINICAL HISTORY: ? DVT,LT LEG WEAKNESS,SWELLING LT LOWER EXT,M79.89,R29.898 TECHNIQUE: Grayscale, color, and doppler imaging of the deep venous system of the left lower extremi ty was performed. COMPARISON: None FINDINGS: There is no evidence of intraluminal thrombus and there is normal compression and augmentation demons trated within the common femoral vein, femoral vein, and popliteal vein. In the ipsilateral calf the interrogated veins also exhibit normal compression/ augmentation properti es. The ipsilateral saphenofemoral junction is patent. Incidentally noted is a Boyle cyst measuring 4 x 3 x 2.3 cm IMPRESSION: 1. No evidence of DVT in the left lower extremity. 2. Boyle cyst in the popliteal fossa noted with measurements as above. DATA REPOSITORY:
== END 2024-06-16 02:10 ==
LOC: DI 01:50
PROVIDERS: PCP Family Medicine; Visit Provider Nurse Practitioner Family
DX: M79.89 Other specified soft tissue disorders (principal); R29.898 Other symptoms and signs involving the musculoskeletal system
CPT/HCPCS: 93971

== ENCOUNTER 2024-07-05 15:25 | Outpatient (CLI) | payer MEDICARE, BC, SELFPAY ==
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
== END 2024-07-05 15:26 | disposition home or self-care (01) ==
LOC: DIORS 15:26
PROVIDERS: PCP Family Medicine; Visit Provider Student in an Organized Health Care Education/Training Program
DX: Z96.641 Presence of right artificial hip joint (principal); Z47.1 Aftercare following joint replacement surgery; M70.61 Trochanteric bursitis, right hip
CPT/HCPCS: 99213; 73502

== ENCOUNTER 2024-07-16 00:43 | Outpatient (CLI) | payer MEDICARE, BC, SELFPAY ==
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
--- NOTE | 2024-07-16 07:00 | DI.MRI_ITS ---
Exam(s) MR LUMBAR SPINE WO EXAM: MR LUMBAR SPINE WO CLINICAL HISTORY: left leg weakness, patella reflex absent,r29.898,r29.2. TECHNIQUE: Multiplanar multisequence MRI of the Lumbar spine was performed. COMPARISON: CR XR DEXA BONE DENSITY W/WO KELLE from 12/01/2023 FINDINGS: Conus medullaris is at normal level. There is no evidence of conus mass nor subjacent clumping of in trathecal nerve roots to suggest arachnoiditis. The distal thecal sac appears unremarkable.There is no evidence of Tarlov intrasacral cysts nor other significant findings within the sacral canal Bones:There are no fractures nor ominous osseous lesions in the lumbar vertebral bodies and visualize d sacrum. With respect to the individual levels... on the upper most field of view there is a disc herniation evident at T10-T11 level which is a central disc protrusion extending posteriorly 6 mm and approximately 14 mm wide, significantly inden ting the anterior thecal sac at this level but not indenting the spinal cord at this level. Osseous central canal dimensions are within normal limits. T11-12: Unremarkable T12-L1: Unremarkable L1-2: Normal disc height. However, there is increased disc signal. There is also mild increased sub endplate signal within the inferior aspect of L1 and superior aspect of L2. There appear to be deve loping Schmorl's node invaginations both in the inferior endplate of L1 and superior endplate of L2 a t these levels. Posteriorly at this level there is no evidence of significant disc herniation or eugenio tral canal stenosis and there is no foraminal stenosis. No facet arthropathy. L2-3: Mild decreased disc height and signal. Mild annular bulging but without significant disc herni ation or central canal stenosis nor foraminal stenosis. Facet joints unremarkable. L3-4: Advanced disc space narrowing which is asymmetric, right more so than left. Posteriorly there is symmetrical annular bulging. Central canal dimensions are lower normal. No significant foraminal stenosis. Some mild degenerative change is seen in the facet joints bilaterally. L4-5: Mild decreased disc height and more prominent disc height loss right than left. No significant disc herniation or central canal stenosis. No significant foraminal stenosis. Mild facet arthropat hy. L5-S1: Advanced disc space narrowing. There is annular bulging which is more left-sided than right a nd extends into the floor of the exiting left neural foramen but without significant foraminal stenos is on either side at this level and there is no central canal stenosis. There is facet arthropathy m ore prominent on the left than right. Soft tissues: paraspinal soft tissues appear unremarkable. IMPRESSION: 1. There is a prominent posterior central disc herniation incidentally noted at T10-T11 level as desc ribed above. This is only partially included in the field of view but the disc herniation does impre ss upon the anterior thecal sac at this level. Consider performing thoracic spine MRI to determine i f there are any additional disc herniations in the thoracic spine above this level. 2. There is abnormal increased signal within the disc at L1-2 level and there appear to be developing Schmorl's node invaginations in the inferior endplate of L1 superior endplate of L2 vertebra directl y above in below this disc finding. There is mild bone edema at this level. There does not appear t o be a in the paraspinal collection nor epidural collection at this level. Recommend close follow-up of this level including repeat MRI after appropriate clinical interval plus blood work to determine if there is an infectious process such as diskitis at this L1-2 level. DATA REPOSITORY:
--- NOTE | 2024-07-16 07:12 | DI.MRI_ITS ---
Exam(s) MR BRAIN WO EXAM: MR BRAIN WO CLINICAL HISTORY: left leg weakness, patella reflex absent,r29.898,r29.2 TECHNIQUE: Multiplanar multisequence MRI of the brain was performed. COMPARISON: No exams were available for comparison FINDINGS: CEREBRAL PARENCHYMA: There is no evidence of intracranial hemorrhage, mass effect, or shift of midline structures. There are no extra-axial fluid collections. Ventricles are not enlarged or shifted. There is the non acute nonhemorrhagic lacunar infarct in the mid aspect of the left cerebellar hemisp here. No surrounding edema. No abnormal signal in the opposite-right cerebellar hemisphere nor with in the ivonne, midbrain, and thalami. There is single tiny focus of nonspecific FLAIR bright signal ab normality in the right supra-para ventricular white matter probably related to chronic small vessel d isease. The amount of involutional changes consistent with this patient's age. There is no significant focal signal abnormality evident on diffusion imaging to suggest acute ischem ic event. PITUITARY GLAND: No mass nor parasellar abnormality. No obvious abnormality in the cavernous sinuses. FLOW VOIDS: The expected flow void are noted. No evidence of obvious aneurysm nor obvious vascular ma lformation. PARANASAL SINUSES: The visualized paranasal sinuses appear unremarkable. 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 Small focus of nonspecific FLAIR bright signal in the right para-supra ventricular white matter. No acute intracranial findings. DATA REPOSITORY:
== END 2024-07-16 01:03 ==
LOC: DI 00:44
PROVIDERS: PCP Family Medicine; Visit Provider Family Medicine
DX: I63.542 Cerebral infarction due to unspecified occlusion or stenosis of left cerebellar artery (principal); M75.121 Complete rotator cuff tear or rupture of right shoulder, not specified as traumatic; M51.24 Other intervertebral disc displacement, thoracic region; V00.321A Fall from snow-skis, initial encounter
CPT/HCPCS: 70551; 72148; 73221

== ENCOUNTER → 2024-08-03 14:05 | Outpatient (BNVA) | payer MEDICARE, BC, SELFPAY | PROVIDERS: PCP Family Medicine; Referring Provider Family Medicine; Visit Provider Student in an Organized Health Care Education/Training Program | DX: M75.101 Unspecified rotator cuff tear or rupture of right shoulder, not specified as traumatic (principal); V00.321A Fall from snow-skis, initial encounter | CPT/HCPCS: 99214 ==

== ENCOUNTER → 2024-10-05 13:54 | Outpatient (BNVA) | payer MEDICARE, BC, SELFPAY | PROVIDERS: PCP Family Medicine; Referring Provider Family Medicine; Visit Provider Student in an Organized Health Care Education/Training Program | DX: M75.101 Unspecified rotator cuff tear or rupture of right shoulder, not specified as traumatic (principal); Z47.89 Encounter for other orthopedic aftercare | CPT/HCPCS: 99213 ==

== ENCOUNTER 2024-11-19 01:15 | Outpatient (CLI) | payer MEDICARE, BC, SELFPAY ==
[2024-11-19 12:21] LABS: Abs Immature Grans 0.02 10^3/uL (0.0-0.06); HCT 42.9 % (36.0-46.0); HGB 14.2 g/dL (11.2-15.7); Immature Grans % 0.5 %; MCH 31.4 pg (27.0-33.0); MCHC 33.1 % (32.0-36.0); MCV 95 fL (80-95); MPV 10.0 fL (8.0-11.0); Platelet Count 262 10^3/uL (130-400); RBC 4.52 10^6/uL (3.93-5.22); RDW 14.5 % (11.7-14.6); RDW-SD 50.5 fL; WBC 4.32 10^3/uL (4.4-10.8)
[2024-11-19 12:35] LABS: Anion Gap 8.3 mmol/L (3-11); BUN 22 mg/dL (7-18); CO2 30.7 mmol/L (21.0-32.0); Calcium 9.6 mg/dL (8.5-10.1); Chloride 103 mmol/L (98-107); Estimated GFR 63.04 (mL/min/1.73m2); Glucose 99 mg/dL (74-106); Potassium 3.5 mmol/L (3.5-5.1); Sodium 142 mmol/L (136-145)
== END 2024-11-19 01:16 | disposition home or self-care (01) ==
LOC: LOS 01:15
PROVIDERS: PCP Family Medicine; Visit Provider Family Medicine
DX: Z79.01 Long term (current) use of anticoagulants (principal); I10 Essential (primary) hypertension
CPT/HCPCS: 36415; 80048; 85025

== ENCOUNTER → 2025-01-25 13:58 | Outpatient (BNVA) | payer MEDICARE, BC, SELFPAY | PROVIDERS: PCP Family Medicine; Referring Provider Family Medicine; Visit Provider Student in an Organized Health Care Education/Training Program | DX: M75.101 Unspecified rotator cuff tear or rupture of right shoulder, not specified as traumatic (principal) | CPT/HCPCS: 99213 ==